=== PATIENT | female | born 1955 | race Caucasian/White ===

== ENCOUNTER 2020-08-16 16:01 | Emergency (ER) | payer OTHER ==
--- OUTSIDE RECORDS SUMMARY | 2020-08-16 16:03 | XMS REPORT | Summary of Care ---
:1955 Author Organization [facility] Address [address] [place] [id number] Care Team Providers Name Role Phone Benito Romeo Primary Care Provider Reason for Visit Reason Comments Well Woman Exam Encounter Details Date Type Department Care Team Description 06/07/[address] [facility] Women's Reny Dubose, Well woman exam with routine gynecological exam (Primary Dx); [facility]; [address] [place] [address] [facility] of loop electrosurgical excision procedure (LEEP) of cervix; Drive, [address] Drive History of HPV infection [facility] [address] [id number] [place], [place] [phone] Allergies Active Allergy Reactions Severity Noted Date Comments Codeine Nausea and/or Vomiting Medium 11/15/2017 documented as of this encounter (statuses as of 06/07/2020) Medications Medication Sig Dispensed Refills Start Date End Date Status atorvastatin 10 mg 20 mg. 0 11/09/2017 Active tablet buPROPion XL 150 mg 24 0 11/09/2017 Active hr tablet citalopram 20 mg tablet 0 11/09/2017 Active SYNTHROID 150 mcg tablet 0 11/09/2017 Active triamcinolone acetonide 0 11/09/2017 Active 0.1 % cream metroNIDAZOLE 0.75 % gel 0 08/30/2017 Active FEXOFENADINE HCL Take by mouth. 0 Active (MALU ALLERGY ORAL) multivitamin tablet Take 1 tablet by 0 Active mouth daily. VITAMIN E, BULK, MISC 0 Active Xoend-1-WBQ-EPA-Fish Oil Take by mouth. 0 Active 1,200 (144-216) mg Cap Cyanocobalamin 1,000 mcg Take by mouth. 0 Active tablet CALCIUM Take by mouth. 0 Acti ve CARBONATE/VITAMIN D2 (CALCIUM + VITAMIN D ORAL) pantoprazole 40 mg EC 0 10/10/2019 Active tablet documented as of this encounter (statuses as of 06/07/2020) Active Problems Problem Noted Date ANDRIY on CPAP 12/02/2019 History of loop electrosurgical excision procedure (LE EP) of cervix 11/15/2017 Constipation, unspecified constipation type 11/15/2017 documented as of this encounter (statuses as of 06/07/2020) Social History Tobacco Use Types Packs/Day Years Used Date Former Smoker Quit: 11/16/19 12 Smokeless Tobacco: Never Used Alcohol Use Drinks/Week oz/Week Comments Yes social Sex Assigned at Date Recorded Not on file COVID-19 Exposure Response Date Recorded In the last month, have you been in contact with No / Unsure 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 documented as of this encounter Last Filed Vital Signs Vital Sign Reading Time Taken Comments Blood Pressure 169/89 06/07/2020 3:12 PM INTER[employer] DES[employer] Pulse 80 06/07/2020 3:07 PM INTERNET DES[employer] Temperature 36.9 C (98.4 F) 06/07/2020 3:07 PM INTERNET DES[employer] Respiratory Rate 18 06/07/2020 3:07 PM INTERNET DES[employer] Oxygen Saturation - - Inhaled Oxygen Concentration - - Weight 90.8 kg (200 lb 3.2 oz) 06/07/2020 3:07 PM [employer] DES[employer] Height 157.5 cm (5' 2") 06/07/2020 3:07 PM INTERNET DESIGNER Body Mass Index 36.62 06/07/2020 3:07 PM INTERNET DESIGNER documented in this encounter Patient Instructions Patient InstructionsMar Reed RN - 06/07/2020 3:00 PM CST Patient Education Prevention Guidelines, Women Ages 65 and Older Screening tests and vaccines are an important part of managing your health. A screening test is doneto find possible disorders or diseases in people who don't have any symptoms. The goal is to find a disease early so lifestyle changes can be made and you can be watched more closely to reduce the riskof disease, or to detect it early enough to treat it most effectively. Screening tests are not considered diagnostic, but are used to determine if more testing is needed. Health counseling is essential, too. Below are guidelines for these, for women ages 65 and older. Talk with your healthcare provider to make sure youre up to date on what you need. Screening Who needs it How often Type 2 diabetes or prediabetes All women beginning at age 45 and women without symptoms at any age who are overweight or obese and have 1 or more additional risk factors for diabetes At least every 3 years Type 2 diabetes All women with prediabetes Every year Unhealthy alcohol use All women in this age group At routine exams Blood pressure All women in this age group Yearly checkup if your blood pressure is normal Normal blood pressure is less than 120/80 mm Hg If your blood pressure reading is higher than normal, follow the advice of your healthcare provider Breast cancer All women of average risk Mammograms should be done every 1 or 2 years. Talk with yourhealthcare provider about your risk factors and how often you need the test and for how long. Cervical cancer Only women who had abnormal screening results before age 65 Talk with your healthcare provider Chlamydia Women at increased risk for infection At routine exams Colorectal cancer All women at average risk in this age group through age 75 who are in good health.For women ages 76 to 85, talk with your healthcare provider about whether to continue screening. Forwomen 85 and older, screening is not needed. Multiple tests are available and are used at different times. Possible tests include: Flexible sigmoidoscopy every 5 years, or Colonoscopy every 10 [address], [address] colonography (virtual colonoscopy) every 5 years, or Yearly fecal occult blood test, or Yearly fecal immunochemical test every year, or Stool DNA test, every 3 years If you choose a test other than a colonoscopy and have an abnormal test result, you will need to follow-up with a colonoscopy. Talk with your healthcare provider which test is best for you. Some people should be screened using a different schedule because of their personal or family healthhistory. Talk with your healthcare provider about your health history. Depression All women in this age group At routine exams Gonorrhea Sexually active women at increased risk for infection At yearly routine exams Hepatitis C Anyone at increased risk; 1 time for those born between 1945 and 1965 At routine exams High cholesterol or triglycerides All women in this age group who are at risk for coronary artery disease At least every 5 years; talk with your healthcare provider about your risk HIV Women at increased risk for infection At routine exams; talk with your healthcare provider aboutyour risk Lung cancer Adults ages 55 to 74 who are in fairly good health and are at higher risk for lung cancer Currently smoke or have quit within the past 15 years 30-pack year smoking history Eligibility criteria and age limit (possibly up to age 80) may vary across major organizations Yearly lung cancer screening with a low dose CT scan (LDCT); talk with your healthcare provider Obesity All women in this age group At yearly routine exams Osteoporosis All women in this age group Routinely done every 2 years, but repeat as advised by yourhealthcare provider Syphilis Women at increased risk for infection At routine exams; talk with your healthcare provider Thyroid-stimulating hormone (TSH) Only women in this age group with symptoms of thyroid dysfunction Talk with your healthcare provider Tuberculosis Women at increased risk for infection Talk with your healthcare provider Vision All women in this age group Every 1 to 2 years; if you have a chronic health condition, ask your healthcare provider if you need exams more often Vaccine Who needs it How often Chickenpox (varicella) All women in this age group who have no record of this infection or vaccine 2doses; second dose should be given at least 4 weeks after the first dose Hepatitis A Women at increased risk for infection 2 or 3 doses (depending on the vaccine) given at least 6 months apart; talk with your healthcare provider Hepatitis B Women at increased risk for infection 2 or 3 doses (depending on the vaccine); second dose should be given 1 month after the first dose; if a the third dose, it should be given at least 2 months after the second dose and at least 4 months after the first dose Haemophilus influenzatype B (HIB) Women at increased risk for infection 1 to 3 doses; talk with your healthcare provider Influenza (flu) All women in this age group Once a year Pneumococcalconjugate vaccine (PCV13)and pneumococcal polysaccharidevaccine (PPSV23) All womenin this age group PPSV 23: women who have not been vaccinated or have not had infection PCV 13: women at increased risk for infection PPSV: 1 dose at age 65 or older PCV 13: 1 dose at age 65 or older; talk with your healthcare provider Tetanus/diphtheria/pertussis (Td/Tdap) booster All women in this age group Td every 10 years, or a 1-time dose of Tdap instead of a Td booster after age 18, then Td every 10 years Zoster (shingles) All women in this age group 2 vaccines are available: Recombinant zoster vaccine (RZV; Shigrix) is recommended as the preferred shingles vaccine. It's given in a series of 2 doses. The 2nd dose is given 2 to 6 months after the first. This is given evenif you've had shingles before or had a previous zoster live vaccine. Zoster live vaccine live (ZVL; Zostavax) may be given to healthy adults over age 60. It's given in one dose. Counseling Who needs it How often Diet and exercise Women who are overweight or obese When diagnosed, and then at routine exams Fall prevention (exercise and vitamin D supplements) All women in this age group At yearly routine exams Sexually transmitted infection prevention Women at increased risk for infectiontalk with your healthcare provider At routine exams Use of daily aspirin Women up to age 70 who are at high risk for cardiovascular problems and not at increased risk for bleeding as identified by your healthcare provider When your risk is known Use of tobacco and the health effects it can cause All women in this age group Every exam The [employer] last reviewed this educational content on 01/28/202019992355-7479 [employer]. All rights reserved. This information is not intended as a substitute for professional medical care. Always follow your healthcare professional's instructions. Patient Education Prevention Guidelines, Women Ages 65 and Older Screening tests and vaccines are an important part of managing your health. A screening test is doneto find possible disorders or diseases in people who don't have any symptoms. The goal is to find a disease early so lifestyle changes can be made and you can be watched more closely to reduce the riskof disease, or to detect it early enough to treat it most effectively. Screening tests are not considered diagnostic, but are used to determine if more testing is needed. Health counseling is essential, too. Below are guidelines for these, for women ages 65 and older. Talk with your healthcare provider to make sure youre up to date on what you need. Screening Who needs it How often Type 2 diabetes or prediabetes All women beginning at age 45 and women without symptoms at any age who are overweight or obese and have 1 or more additional risk factors for diabetes At least every 3 years Type 2 diabetes All women with prediabetes Every year Unhealthy alcohol use All women in this age group At routine exams Blood pressure All women in this age group Yearly checkup if your blood pressure is normal Normal blood pressure is less than 120/80 mm Hg If your blood pressure reading is higher than normal, follow the advice of your healthcare provider Breast cancer All women of average risk Mammograms should be done every 1 or 2 years. Talk with yourhealthcare provider about your risk factors and how often you need the test and for how long. Cervical cancer Only women who had abnormal screening results before age 65 Talk with your healthcare provider Chlamydia Women at increased risk for infection At routine exams Colorectal cancer All women at average risk in this age group through age 75 who are in good health.For women ages 76 to 85, talk with your healthcare provider about whether to continue screening. Forwomen 85 and older, screening is not needed. Multiple tests are available and are used at different times. Possible tests include: Flexible sigmoidoscopy every 5 years, or Colonoscopy every 10 years, or [address] colonography (virtual colonoscopy) every 5 years, or Yearly fecal occult blood test, or Yearly fecal immunochemical test every year, or Stool DNA test, every 3 years If you choose a test other than a colonoscopy and have an abnormal test result, you will need to follow-up with a colonoscopy. Talk with your healthcare provider which test is best for you. Some people should be screened using a different schedule because of their personal or family healthhistory. Talk with your healthcare provider about your health history. Depression All women in this age group At routine exams Gonorrhea Sexually active women at increased risk for infection At yearly routine exams Hepatitis C Anyone at increased risk; 1 time for those born between 1945 and 1964 At routine exams High cholesterol or triglycerides All women in this age group who are at risk for coronary artery disease At least every 5 years; talk with your healthcare provider about your risk HIV Women at increased risk for infection At routine exams; talk with your healthcare provider aboutyour risk Lung cancer Adults ages 55 to 74 who are in fairly good health and are at higher risk for lung cancer Currently smoke or have quit within the past 15 years 30-pack year smoking history Eligibility criteria and age limit (possibly up to age 80) may vary across major organizations Yearly lung cancer screening with a low dose CT scan (LDCT); talk with your healthcare provider Obesity All women in this age group At yearly routine exams Osteoporosis All women in this age group Routinely done every 2 years, but repeat as advised by yourhealthcare provider Syphilis Women at increased risk for infection At routine exams; talk with your healthcare provider Thyroid-stimulating hormone (TSH) Only women in this age group with symptoms of thyroid dysfunction Talk with your healthcare provider Tuberculosis Women at increased risk for infection Talk with your healthcare provider Vision All women in this age group Every 1 to 2 years; if you have a chronic health condition, ask your healthcare provider if you need exams more often Vaccine Who needs it How often Chickenpox (varicella) All women in this age group who have no record of this infection or vaccine 2doses; second dose should be given at least 4 weeks after the first dose Hepatitis A Women at increased risk for infection 2 or 3 doses (depending on the vaccine) given at least 6 months apart; talk with your healthcare provider Hepatitis B Women at increased risk for infection 2 or 3 doses (depending on the vaccine); second dose should be given 1 month after the first dose; if a the third dose, it should be given at least 2 months after the second dose and at least 4 months after the first dose Haemophilus influenzatype B (HIB) Women at increased risk for infection 1 to 3 doses; talk with your healthcare provider Influenza (flu) All women in this age group Once a year Pneumococcalconjugate vaccine (PCV13)and pneumococcal polysaccharidevaccine (PPSV23) All womenin this age group PPSV 23: women who have not been vaccinated or have not had infection PCV 13: women at increased risk for infection PPSV: 1 dose at age 65 or older PCV 13: 1 dose at age 65 or older; talk with your healthcare provider Tetanus/diphtheria/pertussis (Td/Tdap) booster All women in this age group Td every 10 years, or a 1-time dose of Tdap instead of a Td booster after age 18, then Td every 10 years Zoster (shingles) All women in this age group 2 vaccines are available: Recombinant zoster vaccine (RZV; Shigrix) is recommended as the preferred shingles vaccine. It's given in a series of 2 doses. The 2nd dose is given 2 to 6 months after the first. This is given evenif you've had shingles before or had a previous zoster live vaccine. Zoster live vaccine live (ZVL; Zostavax) may be given to healthy adults over age 60. It's given in one dose. Counseling Who needs it How often Diet and exercise Women who are overweight or obese When diagnosed, and then at routine exams Fall prevention (exercise and vitamin D supplements) All women in this age group At yearly routine exams Sexually transmitted infection prevention Women at increased risk for infectiontalk with your healthcare provider At routine exams Use of daily aspirin Women up to age 70 who are at high risk for cardiovascular problems and not at increased risk for bleeding as identified by your healthcare provider When your risk is known Use of tobacco and the health effects it can cause All women in this age group Every exam [employer] last reviewed this educational content on 01/28/202019997305-9622 [employer]. All rights reserved. This information is not intended as a substitute for professional medical care. Always follow your healthcare professional's instructions. 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 She is particularly concerned about WWE. The patient has a Body mass index is 36.62 kg/m.. She is working on eating healthier and exercising more. The patient is postmenopausal. Her last menstrual period was in her 50s. The patient is not sexually active. She currently has 0 sexual partner(s). She is offered sexuallytransmitted disease testing and declines. She denies any hot flushes or night sweats. She is not using hormone therapy. She denies using any complementary or alternative medicines. The patient reports some urinary incontinence. She denies any fecal incontinence. She denies any pelvic prolapse symptoms. Had LEEP about 6-[address] Domenico Carlson in [place]. States that she did not have any abnormal pap smears prior to the LEEP. Pap done in 2006- wnl Pap done in 2007- wnl Pap done in 2008- NILM Pap done in 2009- NILM Pap done in 2010- NILM. Pap in 2011 NILM, + HR HPV, genotype 16. DX of cervical LEEP biopsy done on 01/10/2012 showed DAISY I ECC biopsy results showed fragments of squamous mucosa with focal borderline koilocytosis non diagnostic for HPV effect. No high grade dysplasia identified 05/2013. Pap in 2012 showed NILM, HR HPV neg. Pap in 2013 showed NILM, with HR HPV+, genotype 16. Pap in 2014 was NILM, HR HPV -neg. Pap in [address] Nichols showed NILM. HR HPV-neg. Next pap smear is 2020. She engages in breast self awareness. She denies any breast changes. Her last mammogram was in 2019 and was normal. Will request records from [facility]. Her last DEXA scan was in 2019 and was normal. Her last colonoscopy was in 2016 and was abnormal with polyps. Patient states will get repeat colonoscopy in [address] Betancourt. She denies any n/v, d/c, rectal bleeding. She denies any family history of breast, ovarian, uterine or colon cancer. Patient's mother had cervical cancer. She had a flu shot this year. The patient feels safe at home. She denies any history of drug use. She does not smoke. She drinks socially. Her mood is good. Histories OB History Para Term AB Living 0 0 0 0 0 0 SAB TAB Ectopic Multiple Live Births 0 0 0 0 0 Past Medical History: Diagnosis Date Anxiety Depression Hormone disorder thyroid ANDRIY on CPAP 12/02/2019 Pap smear abnormality of cervix abnormal cells- leep done 6-8 yrs ago Thyroid disease Urinary incontinence min stress incont. Family History Problem Relation Age of Onset Cancer Mother cervical Heart Mother High cholesterol Brother Hypertension Brother Diabetes Maternal Grandmother Heart Sister genetic heart issue Aneurysm Sister 58 brain Arthritis NoFHx Asthma NoFHx defects NoFHx Breast Cancer NoFHx Colon Cancer NoFHx Ovarian Cancer NoFHx Uterine Cancer NoFHx Depression NoFHx Genetic NoFHx Mental retardation NoFHx Neurological NoFHx Osteoporosis NoFHx Psychiatry NoFHx Family Status Relation Name Status Mo Alive Fa Bro Alive MGMo (Not Specified) Sis (Not Specified) NoFHx (Not Specified) Past Surgical History: Procedure Laterality Date BREAST SURGERY bx rajendra breast- benign COLONOSCOPY 2015 scheduled for Ericka-polyp hx COLPOSCOPY CONIZATION CERVIX,LOOP ELECTRD 6-8yrs ago Social History Socioeconomic History Marital status: Single Spouse name: Not on file Number of children: 0 Years of education: Not on file Highest education level: Not on file Occupational History Occupation: retired Social Needs Financial resource strain: Not on file Food insecurity Worry: Not on file Inability: Not on file Transportation needs Medical: Not on file Non-medical: Not on file Tobacco Use Smoking status: Former Smoker Quit date: 11/16/2011 Years since quittin.5 Smokeless tobacco: Never Used Substance and Sexual Activity Alcohol use: Yes Comment: social Drug use: No Sexual activity: Never control/protection: Post-menopausal Lifestyle Physical activity Days per week: Not on file Minutes per session: Not on file Stress: Not on file Relationships Social connections Talks on phone: Not on file Gets together: Not on file Attends nondenominational service: Not on file Active member of club or organization: Not on file Attends meetings of clubs or organizations: Not on file Relationship status: Not on file Intimate partner violence Fear of current or ex partner: Not on file Emotionally abused: Not on file Physically abused: Not on file Forced sexual activity: Not on file Other Topics Concern Not on file Social History Narrative Denies domestic or physical violence Social History Substance and Sexual Activity Sexual Activity Never control/protection: Post-menopausal Labs none Radiology none Allergies Sarina is allergic to codeine. Medications Sarina has a current medication list which includes the following prescription(s): pantoprazole, calcium carbonate/vitamin d2, cyanocobalamin, fexofenadine hcl, vitamin e, atorvastatin, bupropion xl, citalopram, metronidazole, multivitamin, xyfhz-[id number]-rnf-epa-fish oil, synthroid, and triamcinolone acetonide. Review of Systems Constitutional: Negative for appetite change, fatigue, fever, unexpected weight change, weight gain and weight loss. HENT: Negative for rhinorrhea and sore throat. Eyes: Negative for pain and itching. Respiratory: Negative for cough, chest tightness and shortness of breath. Breasts: Negative for discharge, mass and pain. Cardiovascular: Negative for chest pain, palpitations and leg swelling. Gastrointestinal: Negative for abdominal pain, constipation, diarrhea and nausea. Genitourinary: Negative for bladder incontinence, dysuria, vaginal discharge, difficulty urinating, vaginal pain and pelvic pain. Musculoskeletal: Negative for gait problem and myalgias. Skin: Negative for rash. Neurological: Negative for dizziness and headaches. Psychiatric/Behavioral: Negative for suicidal ideas. The patient is not nervous/anxious. Endocrine: Negative for hair loss, weight gain and weight loss. BP (!) 169/89 (BP Location: Right arm, Patient Position: Sitting, BP CUFF SIZE: Adult Medium) | Pulse 80 | Temp 36.9 C (98.4 F) (Oral) | Resp 18 | Ht 5' 2" (1.575 m) | Wt 200 lb 3.2 oz (90.8 kg) | BMI 36.62 kg/m Pregravid BMI: Could not be calculated Physical Exam Vitals reviewed. Constitutional: She is oriented to person, place, and time. She appears well- developed and well-nourished. Neck: No mass. No thyromegaly palpated. No neck adenopathy. Cardiovascular: Regular rate and rhythm. Pulmonary/Chest: Normal inspiratory effort. Abdominal: Abdomen is soft. No tenderness present. No hernia palpated or inspected. Neuro/Psychiatric: She has a normal mood and affect. She is oriented to person, place, and time. Skin: Skin normal. Lymphadenopathy: No neck adenopathy present. No axillary adenopathy present. No inguinal adenopathy present. Breast: Right breast exhibits no mass, no nipple discharge and no tenderness. Left breast exhibits no mass, no nipple discharge and no tenderness. Breasts are symmetrical. Normal left breast and normalright breast External genitalia: Vaginal atrophy+ Urethral meatus: Normal urethral meatus Urethra: Normal urethra. Bladder: No tenderness. Normal bladder Vagina:No lesion inspected. Abnormal estrogen effect. No abnormal vaginal discharge found. No lesions in the vagina. Cervix: Normal cervix. No lesion. No tenderness and no discharge present. Uterus: Uterus is non-tender. Normal uterus Adnexa: Right adnexa without tenderness. Left adnexa without tenderness. Normal left adnexa and normal right adnexa Anus/perineum: Normal perineum and normal anus. Assessment/Plan Well woman exam with routine gynecological exam (primary encounter diagnosis) FOLLOW-UP in 1 yr WWE Screening breast examination No complaints, self awareness. Will request records for dexa, mammo, and colonoscopy. Return to clinic in 1 yr WWE Discussed treatment options. Reviewed patient instructions and provided printed copy. This visit did not involve counseling and coordination that comprised more than 50% of the visit time. Reny Dubose PA-C 06/07/2020 3:54 PM RNET DESIGNER documented in this encounter Plan of Treatment Health Maintenance Due Date Last Done Comments HEPATITIS C (HCV) SCREEN 1955 DTaP,Tdap,and Td Vaccines (1 - Tdap) 1972 COLON CANCER SCREENING ANNUAL FIT/FOBT 2003 COLON CANCER SCREENING FIT DNA EVERY 3 YEARS 2003 COLON CANCER SCREENING SIGMOIDOSCOPY EVERY 5 YEARS 2003 COLONOSCOPY 2003 Colorectal Cancer Screening 2003 Zoster Recombinant Vaccine (SHINGRIX) (1 of 2) 2003 LUNG CANCER SCREEN: Recommended for age 55-80 with 30 2008 + pack year history Medicare Wellness Visit 2018 Osteoporosis Screening 2018 PNEUMOCOCCAL VACCINES 65+ (1 of 1 - PPSV23) 2018 INFLUENZA VACCINE (#1) 2020 Depression Screening 12/01/2020 12/02/2019 Breast Cancer Screening (MAMMOGRAM) 02/15/2021 02/16/2020 documented as of this encounter Results Not on filedocumented in this encounter Visit Diagnoses Diagnosis Well woman exam with routine gynecologic al exam - Primary Routine gynecological examination Screening breast examination Other screening breast examination History of loop electrosurgical excision procedure (LEEP) of cervix History of HPV infection Personal history of other infectious and parasitic disease documented in this encounter Insurance Payer Benefit Plan Subscriber ID Effective Phone Address Typ e / Group Dates MEDICARE MEDICARE [id number] 2018-Pres [phone] [facility] care PART A & B ent [id number] [place] [phone] [place]UTUAL [place]UT[place] [id number] 2018-Pres Medica nimo DOMINGUEZ ent Supplement documented as of this encounter
--- OUTSIDE RECORDS SUMMARY | 2020-08-16 16:03 | XMS REPORT | Continuity of Care Document ---
:1955 Author Organization [facility] t Address [address] [place] [address] Care Team Providers Name Role Phone Yasmany ALLEN, [place] Attending Clinician Doctor Unassigned, Name Attending Clinician Unavailable Only, Test Attending Clinician Unavailable Pob, Lab Main Attending Clinician Unavailable Simone ALLEN, Cam Attending Clinician Gracy FONTAINE Attending Clinician Yasmany ALLEN, A Admitting Clinician Problems This patient has no known problems. Allergies, Adverse Reactions, Alerts This patient has no known allergies or adverse reactions. Medications This patient has no known medications. Procedures This patient has no known procedures. Encounters Start End Encounter Admission Attending Care Care Encounter Source Date/Time Date/Time Type Type Clinicians Facility Department ID 2020-08-04 2020-08-04 [id number] 08:20:00 11:36:00 Encounter Dev Ospina [id number] [place] 4.2.7.2.686 Surgical [id number] [place] 071 2020-08-04 2020-08-04 Orders Doctor PIERCE [id number] 00:00:00 00:00:00 Only Unassigned, [place] [id number] [place] [facility] 4.2.7.2.686 [id number] [id number] 2020-08-03 2020-08-03 Laboratory Only, [facility] [id number] 09:10:42 09:25:42 Only Test Bhavesh [id number] [place] 4.2.7.2.686 [place] [id number] 2020-07-26 2020-07-26 Developer Relations Manager Minnie, [facility] [id number] 16:35:19 16:50:19 Visit Lab Main Bhavesh [id number] [place] 4.2.7.2.686 Professio [id number] [address] 2020-06-15 2020-06-15 Orders Doctor STAN [id number] 00:00:00 00:00:00 Only Unassigned, [place] [id number] [place] [facility] 4.2.7.2.686 [id number] [id number] 2020-06-10 2020-06-10 Telephone Monika Nichols [facility] [id number] 00:00:00 00:00:00 Cam Bhavesh [id number] [place] 4.2.7.2.686 Professio [id number] [address] 2020-06-07 2020-06-07 Office Gracy [facility] [id number] 14:58:09 15:28:09 Visit Reny Ospina 350.1.13.10 [place] 4.2.7.2.686 Professio [id number] [address] 2020-06-07 2020-06-07 Orders Doctor STAN [id number] 00:00:00 00:00:00 Only Unassigned, [place]SH[place] [id number] [place] [facility] 4.2.7.2.686 [id number] [id number] Results This patient has no known results.
--- OUTSIDE RECORDS SUMMARY | 2020-08-16 16:04 | XMS REPORT | Summary of Care ---
:1955 Author Organization [facility] Address [address] [place] [address] Care Team Providers Name Role Phone Benito Romeo Primary Care Provider Reason for Visit Reason Comments LAB WORK Auth/Cert Status Reason Specialty Diagnoses / Referred By Referred To Procedures Contact Contact Clinical Medical Adc Lab Laboratory [address] [place] [phone] Encounter Details Date Type Department Care Team Description 08/03/2020 Laboratory Only [facility] Dev Jade MD [address] [place] [phone] Preop testing (Primary Dx); Phlebotomy Only, [facility] Test COVID-19 Lab-[address] [address] Allergies Active Allergy Reactions Severity Noted Date Comments Codeine Nausea and/or Vomiting Medium 11/15/2017 Latex Hives Medium 08/02/2020 documented as of this encounter (statuses as of 08/03/2020) Medications Medication Sig Dispensed Refills Start Date [...] daily. VITAMIN E, BULK, MISC 0 Active Pjfqw-1-ZHC-EPA-Fish Oil Take by mouth. 0 Active 1,200 (144-216) mg Cap Cyanocobalamin 1,000 mcg Take by mouth. 0 Active tablet CALCIUM Take by mouth. 0 Acti ve CARBONATE/VITAMIN D2 (CALCIUM + VITAMIN D ORAL) pantoprazole 40 mg EC 0 10/10/2019 Active tablet documented as of this encounter (statuses as of 08/03/2020) Active Problems Problem Noted Date ANDRIY on CPAP 12/02/2019 History of loop electrosurgical excision procedure (LE EP) of cervix 11/15/2017 Constipation, unspecified constipation type 11/15/2017 documented as of this encounter (statuses as of 08/03/2020) Social History Tobacco Use Types Packs/Day Years Used Date Former Smoker Quit: 11/16/19 12 Smokeless Tobacco: Never Used Alcohol Use Drinks/Week oz/Week Comments Yes social Sex Assigned at Date Recorded Not on file COVID-19 Exposure Response Date Recorded In the last month, have you been in contact with No / Unsure 08/02/2020 3:36 PM [employer] someone who was confirmed or suspected to have Coronavirus / COVID-19? documented as of this encounter Last Filed Vital Signs Not on filedocumented in this encounter Nursing Notes Trish Strickland - 08/03/2020 9:30 AM CSTCovid swab collected. documented in this encounter Plan of Treatment Date Type Specialty Care Team Description 08/04/2020 Hospital Encounter Surgery Dev Jade MD [address] [place] [address] [phone] 08/04/2020 Anesthesia Event Surgery Benito Castano C [address] [phone] 08/04/2020 Surgery Surgery Dev Jade PHACOEMULSI FICATION OF MD [place] CATARACT WITH INTRAOCULAR [address] [place] [address] [phone] Name Type Priority Associated Diagnoses Date/Ti me COVID-19 (ID NOW RAPID LAB Routine Preop testing 11/2020 9:31 AM [employer] TESTING) Name Type Priority Associated Diagnoses Order S jamie COVID-19 (ID NOW RAPID LAB Routine Preop testing Expe cted: 08/03/2020, TESTING) Expires: 2021 Health Maintenance Due Date Last Done Comments [...] filedocumented in this encounter Visit Diagnoses Diagnosis Preop testing - Primary Preoperative examination, unspecified COVID-19 Combined forms of age-related cataract o f right eye Other and combined forms of senile catar act documented in this encounter Insurance Payer Benefit Plan Subscriber ID Effective Phone Address Typ e / Group Dates MEDICARE MEDICARE [id number] 2018-Pres [phone] Medi care PART A & B ent [id number] [place] [phone] [place] [id number] 2018-Pres Medica nimo DOMINGUEZ ent Supplement documented as of this encounter
--- OUTSIDE RECORDS SUMMARY | 2020-08-16 16:04 | XMS REPORT | Summary of Care ---
:1955 Author Organization [facility] Address [address] [place] [address] Care Team Providers Name Role Phone Benito Romeo Primary Care Provider Reason for Visit Reason Comments LAB WORK Auth/Cert Status Reason Specialty Diagnoses / Procedures Referred By Tarik ellington Referred To Contact Phlebotomy Diagnoses H25.811 Adc Pob Lab Draw Procedures CBC CMP Professional Office Building [address] [facility] , [address] [place] [address] Phone: Fax: Encounter Details Date Type Department Care Team Description 07/26/2020 Armor Reconnaissance Vehicle Driver Visit [facility] Pan Jade MD [address] [place] [address] [facility] [place] [address] Preop testing Professional Office Pob, Adc Lab Main (Primary Dx) Building Phlebotomy Lab Professional Office Building [address] [place] [address] , [address] [place] [address] Allergies Active Allergy Reactions Severity Noted Date Comments Codeine Nausea and/or Vomiting Medium 11/15/2017 documented as of this encounter (statuses as of 07/26/2020) Medications Medication Sig Dispensed Refills Start Date [...] daily. VITAMIN E, BULK, MISC 0 Active Czlpd-4-PWO-EPA-Fish Oil Take by mouth. 0 Active 1,200 (144-216) mg Cap Cyanocobalamin 1,000 mcg Take by mouth. 0 Active tablet CALCIUM Take by mouth. 0 Acti ve CARBONATE/VITAMIN D2 (CALCIUM + VITAMIN D ORAL) pantoprazole 40 mg EC 0 10/10/2019 Active tablet documented as of this encounter (statuses as of 07/26/2020) Active Problems Problem Noted Date ANDRIY on CPAP 12/02/2019 History of loop electrosurgical excision procedure (LE EP) of cervix 11/15/2017 Constipation, unspecified constipation type 11/15/2017 documented as of this encounter (statuses as of 07/26/2020) Social History Tobacco Use Types Packs/Day Years Used Date Former Smoker Quit: 11/16/19 12 Smokeless Tobacco: Never Used Alcohol Use Drinks/Week oz/Week Comments Yes social Sex Assigned at Date Recorded Not on file COVID-19 Exposure Response Date Recorded In the last month, have you been in contact with No / Unsure 07/26/2020 4:34 PM INTERMISSION COORDINATOR someone who was confirmed or suspected to have Coronavirus / COVID-19? documented as of this encounter Last Filed Vital Signs Not on filedocumented in this encounter Nursing Notes Trish Strickland - 07/26/2020 5:15 PM CST Venipuncture collection performed by clean technique on the right anticubitus. Total of 1 attempts were made. Slight pressure and a bandage/dressing were applied to the site(s). The patient experiencedno complications. The following specimens were processed according to instructions and sent to [facility] laboratories per lab order on [id number]: LT BLUE 1 SST RED 1 LAV PPT DK GREEN (LiHep) DK GREEN (SodH) RAMIREZ DK BLUE (K2) DK BLUE (S) ACD Blood Culture NIPT/NTD documented in this encounter Plan of Treatment Date Type Specialty Care Team Description 08/03/2020 Laboratory Only Clinical Medical YasmanyPan MD [address] [place] [address] [place] [address] Laboratory Only, Adc Test 08/04/2020 Hospital Surgery Dev Jade MD [address] [place] [address] [phone] 08/04/2020 Anesthesia Event Surgery Benito Castano, [address] [phone] 08/04/2020 Surgery Surgery Dev Jade PHACOEMULSI JOSHUAATION CRISTOPHER Perry MD CATARACT WITH INTRAOCULAR [address] [facility] [phone] Name Type Priority Associated Diagnoses Date/Ti me CBC WITH DIFF LAB Routine Preop testing 07/26/2020 4 :55 PM INTERMISSION COORDINATOR COMP. METABOLIC PANEL LAB Routine Preop testing 07/26 4:55 PM INTERMISSION COORDINATOR ([id number]) Name Type Priority Associated Diagnoses Order S chedule CBC WITH DIFF LAB Routine Preop testing Expected: , Expires: 2020 COMP. METABOLIC PANEL LAB Routine Preop testing Expec iris: 07/26/2020, ([id number]) Expires: 2020 Health Maintenance Due Date Last Done Comments [...] Preop testing - Primary Preoperative examination, unspecified Combined forms of age-related cataract o f right eye Other and combined forms of senile catar act documented in this encounter Insurance Payer Benefit Plan Subscriber ID Effective Phone Address Typ e / Group Dates MEDICARE MEDICARE [id number] 2018-Pres [phone] [address] [facility] PART A & B ent [id number] [place] [phone] [place] [id number] 2018-Pres Medica re ANGELICA DOMINGUEZ ent Supplement documented as of this encounter
--- OUTSIDE RECORDS SUMMARY | 2020-08-16 16:04 | XMS REPORT | Summary of Care ---
:1955 Author Organization [facility] Address [address] [place] [address] Care Team Providers Name Role Phone Benito Romeo Primary Care Provider Reason for Visit Reason Comments Well Woman Exam Encounter Details Date Type Department Care Team Description 06/07/2020 Office Visit [facility] Women's Reny Dubose, Well woman exam with routine gynecological exam (Primary Dx); [facility]; [address] [place] [address] [facility] History of loop electrosurgical excision procedure (LEEP) of cervix; Drive, [address] Drive History of HPV infection [facility] [address] [address] [place], [place] [phone] [address] Allergies Active Allergy Reactions Severity Noted [...] daily. VITAMIN E, BULK, MISC 0 Active Kdhas-1-PFH-EPA-Fish Oil Take by mouth. 0 Active 1,200 [...] with No / Unsure 06/07/2020 2:54 PM GEOMORPHOLOGY TEACHER someone who was confirmed or suspected to have Coronavirus / COVID-19? documented as of this encounter Last Filed Vital Signs Vital Sign Reading Time Taken Comments Blood Pressure 169/89 06/07/2020 3:12 PM GEOMORPHOLOGY TEACHER Pulse 80 06/07/2020 3:07 PM GEOMORPHOLOGY TEACHER Temperature 36.9 C (98.4 F) 06/07/2020 3:07 PM GEOMORPHOLOGY TEACHER Respiratory Rate 18 06/07/2020 3:07 PM GEOMORPHOLOGY TEACHER Oxygen Saturation - - Inhaled Oxygen Concentration - - Weight 90.8 kg (200 lb 3.2 oz) 06/07/2020 3:07 PM GEOMORPHOLOGY TEACHER Height 157.5 cm (5' 2") 06/07/2020 3:07 PM GEOMORPHOLOGY TEACHER Body Mass Index 36.62 06/07/2020 3:07 PM GEOMORPHOLOGY TEACHER documented in this encounter Patient Instructions Patient [...] women in this age group Every exam [employer] last reviewed this educational content on 01/28/202019992212-7010 The [employer]. All rights reserved. This information is not [...] women in this age group Every exam [employer] last reviewed this educational content on 01/28/202019994696-1728 The [employer]. All rights reserved. This information is not intended as a substitute for professional medical care. Always follow your healthcare professional's instructions. ORPHOLOGY TEACHER documented in this encounter Progress Notes Reny [...] years ago with Dr. Domenico Carlson in [place]. States that she did not have any [...] and was normal. Will request records from [facility]. Her last DEXA scan was in 2019 [...] file Gets together: Not on file Attends sikh service: Not on file Active member of [...] e, atorvastatin, bupropion xl, citalopram, metronidazole, multivitamin, lctxy-5-txh-epa-fish oil, synthroid, and triamcinolone acetonide. Review of [...] time. Reny Dubose PA-C 06/07/2020 3:54 PM ORPHOLOGY TEACHER documented in this encounter Plan of Treatment [...] Typ e / Group Dates MEDICARE MEDICARE [id number] 2018-Pres [phone] [address] [facility] care PART A & B ent [id number] [place] [phone] [place]UT[place] [id number] 2018-Pres Medica nimo DOMINGUEZ ent Supplement documented as of this encounter
--- OUTSIDE RECORDS SUMMARY | 2020-08-16 16:04 | XMS REPORT | Summary of Care ---
:1955 Author Organization [facility] - Health Address [address] [place] [address] Care Team Providers Name Role Phone Agueda Benito Lopez Primary Care Provider Encounter Details Date Type Department Care Team Description 06/15/2020 Orders Only [facility] Doctor Unassigned, No [address] [facility] [place] [address] [address] [place] [address] Allergies Active Allergy Reactions Severity Noted Date Comments Codeine Nausea and/or Vomiting Medium 11/15/2017 documented as of this encounter (statuses as of 06/15/2020) Medications Medication Sig Dispensed Refills Start Date [...] daily. VITAMIN E, BULK, MISC 0 Active Dbskt-6-IRZ-EPA-Fish Oil Take by mouth. 0 Active 1,200 (144-216) mg Cap Cyanocobalamin 1,000 mcg Take by mouth. 0 Active tablet CALCIUM Take by mouth. 0 Acti ve CARBONATE/VITAMIN D2 (CALCIUM + VITAMIN D ORAL) pantoprazole 40 mg EC 0 10/10/2019 Active tablet documented as of this encounter (statuses as of 06/15/2020) Active Problems Problem Noted Date ANDRIY on CPAP 12/02/2019 History of loop electrosurgical excision procedure (LE EP) of cervix 11/15/2017 Constipation, unspecified constipation type 11/15/2017 documented as of this encounter (statuses as of 06/15/2020) Social History Tobacco Use Types Packs/Day Years Used Date Former Smoker Quit: 11/16/19 12 Smokeless Tobacco: Never Used Alcohol Use Drinks/Week oz/Week Comments Yes social Sex Assigned at Date Recorded Not on file COVID-19 Exposure Response Date Recorded In the last month, have you been in contact with No / Unsure 06/07/2020 2:54 PM STEEL RIGGER someone who was confirmed or suspected to have Coronavirus / COVID-19? documented as of this encounter Last Filed Vital Signs Not on filedocumented in this encounter Plan of Treatment Health [...] 02/15/2021 02/16/2020 documented as of this encounter Procedures Procedure Name Priority Date/Time Associated Diagnosis Comme nts EXTERNAL PROVIDER Routine 06/15/2020 12:01 AM STEEL RIGGER RECORDS documented in this encounter Results Not on filedocumented in this encounter Insurance Payer Benefit Plan Subscriber ID Effective Phone Address Typ e / Group Dates MEDICARE MEDICARE [id number] 2018-Pres [phone] [facility] care PART A & B ent [id number] [place] [phone] [place] [id number] 2018-Pres Medica nimo DOMINGUEZ ent Supplement documented as of this encounter
--- OUTSIDE RECORDS SUMMARY | 2020-08-16 16:04 | XMS REPORT | Summary of Care ---
:1955 Author Organization [facility] - Health Address [address] [place] [address] Care Team Providers Name Role Phone Agueda Benito Lopez Primary Care Provider Encounter Details Date Type Department Care Team Description 06/07/2020 Orders Only [facility] Doctor Unassigned, No [address] [place] [address] [address] [place] [address] Allergies Active Allergy Reactions Severity Noted Date Comments Codeine Nausea and/or Vomiting Medium 11/15/2017 documented as of this encounter (statuses as of 06/11/2020) Medications Medication Sig Dispensed Refills Start Date [...] daily. VITAMIN E, BULK, MISC 0 Active Wmtrz-8-SGK-EPA-Fish Oil Take by mouth. 0 Active 1,200 (144-216) mg Cap Cyanocobalamin 1,000 mcg Take by mouth. 0 Active tablet CALCIUM Take by mouth. 0 Acti ve CARBONATE/VITAMIN D2 (CALCIUM + VITAMIN D ORAL) pantoprazole 40 mg EC 0 10/10/2019 Active tablet documented as of this encounter (statuses as of 06/11/2020) Active Problems Problem Noted Date ANDRIY on CPAP 12/02/2019 History of loop electrosurgical excision procedure (LE EP) of cervix 11/15/2017 Constipation, unspecified constipation type 11/15/2017 documented as of this encounter (statuses as of 06/11/2020) Social History Tobacco Use Types Packs/Day Years Used Date Former Smoker Quit: 11/16/19 12 Smokeless Tobacco: Never Used Alcohol Use Drinks/Week oz/Week Comments Yes social Sex Assigned at Date Recorded Not on file COVID-19 Exposure Response Date Recorded In the last month, have you been in contact with No / Unsure 06/07/2020 2:54 PM CAMPUS CH[employer]IN someone who was confirmed or suspected to [...] Name Priority Date/Time Associated Diagnosis Comme nts AUTHORIZATION TO RELEASE Routine 06/07/2020 12:01 AM PHI TO [facility] [place] documented in this encounter Results Not on filedocumented in this encounter Insurance Payer Benefit Plan Subscriber ID Effective Phone Address Typ e / Group Dates MEDICARE MEDICARE [id number] 2018-Pres [phone] Medi care PART A & B ent [id number] [place] [phone] [place] [id number] 2018-Pres Medica nimo DOMINGUEZ ent Supplement documented as of this encounter
--- OUTSIDE RECORDS SUMMARY | 2020-08-16 16:04 | XMS REPORT | Summary of Care ---
:1955 Author Organization [facility] Address [address] [place] [address] Care Team Providers Name Role Phone Nicholekimberly Benito Jessica Primary Care Provider Reason for Visit Reason Comments Medical Records Encounter Details Date Type Department Care Team Description 06/10/2020 Telephone [facility] Women's Monika Nichols MD Medical Records Healthcare- [address] [address] [address] [place] [address] [place] [address] [phone] Allergies Active Allergy Reactions Severity Noted Date Comments Codeine Nausea and/or Vomiting Medium 11/15/2017 documented as of this encounter (statuses as of 06/10/2020) Medications Medication Sig Dispensed Refills Start Date [...] daily. VITAMIN E, BULK, MISC 0 Active Xxfie-9-GNI-EPA-Fish Oil Take by mouth. 0 Active 1,200 (144-216) mg Cap Cyanocobalamin 1,000 mcg Take by mouth. 0 Active tablet CALCIUM Take by mouth. 0 Acti ve CARBONATE/VITAMIN D2 (CALCIUM + VITAMIN D ORAL) pantoprazole 40 mg EC 0 10/10/2019 Active tablet documented as of this encounter (statuses as of 06/10/2020) Active Problems Problem Noted Date ANDRIY on CPAP 12/02/2019 History of loop electrosurgical excision procedure (LE EP) of cervix 11/15/2017 Constipation, unspecified constipation type 11/15/2017 documented as of this encounter (statuses as of 06/10/2020) Social History Tobacco Use Types Packs/Day Years Used Date Former Smoker Quit: 11/16/19 12 Smokeless Tobacco: Never Used Alcohol Use Drinks/Week oz/Week Comments Yes social Sex Assigned at Date Recorded Not on file COVID-19 Exposure Response Date Recorded In the last month, have you been in contact with No / Unsure 06/07/2020 2:54 PM MEDICAID BILLING SPECIALIST someone who was confirmed or suspected to have Coronavirus / COVID-19? documented as of this encounter Last Filed Vital Signs Not on filedocumented in this encounter Miscellaneous Notes Telephone Encounter - Reny Dubose PA-C - 06/10/2020 12:01 PM CSTUS of R Breast on 06/01/2020 Stable breast finding as detailed. Diagnostic mammo and right breast USG in 9 months is recommended.This would complete a 1 year follow up. US of R breast on 02/23/2020 9 mm oblong lesion is present in 12 o clock position favored to represent intramammary lymph node a demonstrating mild angulated margins. A 7 mm oblong circumscribed lesion in the 9 o clock periareolaregion. This may be additional lymph node but is non specific in appearance. 6 month follow-up usg of R breast recommended. Mammogram done on 02/13/2020 1 cm asymmetric density within the retroareolar region of the right breast. Ultrasound recommended.Benign appearing L breast. DEXA scan done on 02/13/2020 normal CAID BILLING SPECIALIST Telephone Encounter - Nanette Phillips - 06/10/2020 11:35 AM CSTReceived fax, medical records from [facility] Placed on Reny's desk. documented in this encounter Plan of Treatment [...] Typ e / Group Dates MEDICARE MEDICARE [id number] 2018-Pres [phone] [facility] care PART A & B ent [id number] WANDA MELENDEZ [phone] [place] [id number] 2018-Pres Tierra DOMINGUEZ ent Supplement documented as of this encounter
--- OUTSIDE RECORDS SUMMARY | 2020-08-16 16:05 | XMS REPORT | Summary of Care ---
:1955 Author Organization [facility] Address [address] [place] [address] Care Team Providers Name Role Phone Benito Romeo Primary Care Provider Reason for Visit Auth/Cert Status Reason Specialty Diagnoses / Procedures Referred By Tarik richmondact Referred To Contact Surgery Diagnoses Combined forms of age-related cataract, right eye Combined forms of age-related cataract of right eye [H25.811] Adc Pre/Pacu/Post Procedures MT XCAPSL CTRC RMVL INSJ IO LENS PROSTH W/O ECP PHACOEMULSIFICATION OF CATARACT WITH INTRAOCULAR LENS IMPLANT [id number] - MT XCAPSL CTRC RMVL INSJ IO LENS PROSTH W/O ECP [address] [place], [place] [address] Phone: Fax: Encounter Details Date Type Department Care Team Description 08/04/2020 Hospital Encounter [facility] MD Tr[facility] [address] [facility] [place] [address] [place], [place] [phone] Allergies Active Allergy Reactions Severity Noted Date Comments Codeine Nausea and/or Vomiting Medium 11/15/2017 Latex Hives Medium 08/02/2020 documented as of this encounter (statuses as of 08/04/2020) Medications Medication Sig Dispensed Refills Start Date [...] daily. VITAMIN E, BULK, MISC 0 Active Vhkyl-3-UMA-EPA-Fish Oil Take by mouth. 0 Active 1,200 (144-216) mg Cap Cyanocobalamin 1,000 mcg Take by mouth. 0 Active tablet CALCIUM Take by mouth. 0 Acti ve CARBONATE/VITAMIN D2 (CALCIUM + VITAMIN D ORAL) pantoprazole 40 mg EC 0 10/10/2019 Active tablet documented as of this encounter (statuses as of 08/04/2020) Active Problems Problem Noted Date ANDRIY on CPAP 12/02/2019 History of loop electrosurgical excision procedure (LE EP) of cervix 11/15/2017 Constipation, unspecified constipation type 11/15/2017 documented as of this encounter (statuses as of 08/04/2020) Social History Tobacco Use Types Packs/Day Years Used Date Former Smoker Quit: 11/16/19 12 Smokeless Tobacco: Never Used Tobacco Cessation: Counseling Given: No Alcohol Use Drinks/Week oz/Week Comments Yes social Sex Assigned at Date Recorded Not on file COVID-19 Exposure Response Date Recorded In the last month, have you been in contact with No / Unsure 08/02/2020 3:36 PM MANAGER OUTREACH someone who was confirmed or suspected to have Coronavirus / COVID-19? documented as of this encounter Last Filed Vital Signs Vital Sign Reading Time Taken Comments Blood Pressure 180/81 08/04/2020 11:27 AM MANAGER OUTREACH Pulse 67 08/04/2020 11:20 AM MANAGER OUTREACH Temperature 36.2 C (97.1 F) 08/04/2020 11:27 AM MANAGER OUTREACH Respiratory Rate 19 08/04/2020 11:27 AM MANAGER OUTREACH Oxygen Saturation 99% 08/04/2020 11:27 AM MANAGER OUTREACH Inhaled Oxygen Concentration - - Weight 85.3 kg (188 lb) 08/02/2020 3:30 PM MANAGER OUTREACH Height 157.5 cm (5' 2") 08/02/2020 3:30 PM MANAGER OUTREACH Body Mass Index 34.39 08/02/2020 3:30 PM MANAGER OUTREACH documented in this encounter Discharge Instructions InstructionsScalise-Leola Cummings RN - 1CATARACT DISCHARGE INSTRUCTIONS 1. DO NOT Remove the eye patch. Leave on until you post-operative visit tomorrow. Keep it dry. 2. Activities as tolerated 3. Please no heavy lifting, and do not drive or operate machinery until you are seen by a doctor on your first post op day. 4. Your depth perception may be off, so walk a little slower. Be careful on steps or stairs and uneven ground and go slower around corners. 5. Most likely your eye will stay numb until tomorrow and you should not experience any extreme pain. However, if you should have bad pain or nausea, please call the doctor's office or hospital chair post machine operator to get in touch with doctor. 6. For mild discomfort or a headache, you may take Tylenol, Aspirin, or Ibuprofen (in not allergic). 7. You may resume your pre-operative diet. 8. If you have any further questions or concerns, please call the office or hospital chair post machine operator to getin touch with the doctor. documented in this encounter H&P Notes Dev Jade MD - 08/04/2020 10:27 AM CSTH&P Update H&P was reviewed and the patient was examined and there was no change in the patient's condition. documented in this encounter Plan of Treatment [...] - PPSV23) 2018 INFLUENZA VACCINE (#1) 2020 Breast Cancer Screening (MAMMOGRAM) 02/15/2021 02/16/2020 Depression Screening 08/04/2021 08/04/2020 documented as of this encounter Implants Implanted Type Area Clinical Psychologist Device Shelf Model / Identifier Expiration Date Ser ial / Lot Lens, Bradford #[id number] - [id number] LENS Right: Bradford 07/29/2023 [id number] / Implanted: Qty: 1 on 08/04/2020 by Dev Flor MD at [facility] Eye 1 [id number] / N/A documented as of this encounter Procedures Procedure Name Priority Date/Time Associated Diagnosis Comme nts CONSENT/REFUSAL FOR Routine 07/26/2020 4:32 PM DIAGNOSIS AND TREATMENT MANAGER OUTREACH ASSIGNMENT OF BENEFITS Routine 07/26/2020 4:31 PM MANAGER OUTREACH CONSENT/REFUSAL FOR Routine 07/26/2020 4:31 PM DIAGNOSIS AND TREATMENT MANAGER OUTREACH ASSIGNMENT OF BENEFITS Routine 07/26/2020 4:31 PM MANAGER OUTREACH PHYSICIAN ORDERS Routine 07/26/2020 12:01 AM MANAGER OUTREACH documented in this encounter Results Not on filedocumented in this encounter Visit Diagnoses Diagnosis Cataract, nuclear sclerotic senile, righ t - Primary documented in this encounter Administered Medications Medication Order MAR Action Action Date Dose Rate Site balanced salt irrig soln comb1 Given 08/04/2020 10:54 AM MANAGER OUTREACH 500 mL (BSS PLUS) ophthalmic solution 500 mL bag PRN, Starting Sun08/04/20 at 1054, Until Discontinued, Routine, Intra-op carbachoL (MIOSTAT) 0.01 % intraocular Given 08/04/2020 10:54 AM MANAGER OUTREACH 1.5 mL injection PRN, Starting Sun08/04/20 at 1054, Until Discontinued, Routine, Intra-op ceFAZolin (ANCEF) injection Given 08/04/2020 11:02 AM MANAGER OUTREACH 0.02 mg Righ t Eye PRN, Starting Sun08/04/20 at 1102, Until Discontinued, DEBORAH, Intra-op dexamethasone (DECADRON PHOSPHATE) Given 08/04/2020 11:02 AM MANAGER OUTREACH 0.3 mL Right Eye injection PRN, Starting Sun08/04/20 at 1102, Until Discontinued, Routine, Intra-op DUOVISC (DUOVISC VISCO ELASTIC) 3 %-4 %(0.5 Given 08/04/2020 10:55 AM MANAGER OUTREACH 1 Kit mL) 1 % (0.55 mL) intraocular injection PRN, Starting Sun08/04/20 at 1055, Until Discontinued, Routine, Intra-op EPINEPHrine 1:1,000 (1 mg/mL) Given 08/04/2020 10:50 AM MANAGER OUTREACH 0.5 mg Right Eye (ADRENALIN) injection PRN, Starting Sun08/04/20 at 1050, Until Discontinued, Routine, Intra-op eye block syringe 11 mL Given 08/04/2020 10:41 AM MANAGER OUTREACH 10 mL PRN, Starting Sun08/04/20 at 1041, Until Discontinued, Intra-op gentamicin injection Given 08/04/2020 11:02 AM MANAGER OUTREACH 0.2 mL Righ t Eye PRN, Starting Sun08/04/20 at 1102, Until Discontinued, DEBORAH, Intra-op Hyaluronidase, Human Recomb. Given 08/04/2020 10:41 AM MANAGER OUTREACH 150 U nits Right Eye (HYLENEX) injection PRN, Starting Sun08/04/20 at 1041, Until Discontinued, Routine, Intra-op cnlxyuaf-tkcdaaaem-nnmjvxkstjtkd (MAXITROL) Given 12/2020 11:03 AM 0.5 Inches 3.5 mg/g-10,000 unit/g-0.1 % ophthalmic MANAGER OUTREACH ointment PRN, Starting Sun08/04/20 at 1103, Until Discontinued, Routine, Intra-op sodium chloride (NS) injection Given 08/04/2020 11:02 AM MANAGER OUTREACH 10 mL Righ t Eye PRN, Starting Sun08/04/20 at 1102, Until Discontinued, Routine, Intra-op water for irrigation irrigation Given 08/04/2020 10:46 AM MANAGER OUTREACH 30 mL Right Eye solution PRN, Starting Sun08/04/20 at 1046, Until Discontinued, Routine, Intra-op Medication Order MAR Action Action Date Dose Rate Site lactated ringers IV infusion New Bag 08/04/2020 8:42 AM MANAGER OUTREACH 1,000 mL 42 mL/hr 1,000 mL at 42 mL/hr, 1,000 mL, IV Infusion, ONCE, 1 dose, Sun08/04/20 at 0830, Routine, DSU Pre-op mydriatic #5 ophthalmic solution 0.5 mL Given 08/04/2020 8:51 A M MANAGER OUTREACH 0.5 mL syringe 0.5 mL, Right Eye, ONCE, 1 dose, Sun08/04/20 at 0830, Routine documented in this encounter Insurance Payer Benefit Plan Subscriber ID Effective Phone Address Typ e / Group Dates MEDICARE MEDICARE [id number] 2018-Pres [phone] [facility] care PART A & B ent [phone] [id number] WANDA MELENDEZ [phone] [place]UT[place] [id number] 2018-Pres Eha nimo DOMINGUEZ ent Supplement documented as of this encounter
--- OUTSIDE RECORDS SUMMARY | 2020-08-16 16:05 | XMS REPORT | Summary of Care ---
:1955 Author Organization [facility] Address [address] [place] [address] Care Team Providers Name Role Phone Agueda Benito Lopez Primary Care Provider Encounter Details Date Type Department Care Team Description 08/04/2020 Orders Only [facility] Doctor Unassigned, No [address] [facility] [place] [address] [address] [place] [address] Allergies Active Allergy Reactions Severity Noted Date [...] daily. VITAMIN E, BULK, MISC 0 Active Fvlnn-3-DGM-EPA-Fish Oil Take by mouth. 0 Active 1,200 [...] with No / Unsure 08/02/2020 3:36 PM BACK END ARCHITECT someone who was confirmed or suspected to [...] of this encounter Implants Implanted Type Area Injection Mold Tooling Technician Device Shelf Model / Identifier Expiration Date Ser ial / Lot Lens, Bradford #[id number] - [id number] LENS Right: Bradford 07/29/2023 [id number] / Implanted: Qty: 1 on 08/04/2020 by Dev Flor MD at [facility] Eye 1 [id number] / N/A documented as of this encounter Procedures Procedure Name Priority Date/Time Associated Diagnosis Comme nts PATIENT QUESTIONNAIRE Routine 08/04/2020 12:01 AM BACK END ARCHITECT documented in this encounter Results Not on filedocumented in this encounter Insurance Payer Benefit Plan Subscriber ID Effective Phone Address Typ e / Group Dates MEDICARE MEDICARE [id number] 2018-Pres [phone] [facility] PART A & B ent [id number] WANDA MELENDEZ [phone] [place]UT[place] MUTUAL [place] [id number] 2018-Pres Eha nimo DOMINGUEZ ent Supplement documented as of this encounter
--- NOTE | 2020-08-16 17:15 | RAD REPORT ---
EXAM DESCRIPTION: CT - Head Brain Wo Cont - 08/16/2020 4:49 pm CLINICAL HISTORY: Head injury status post fall. Headache COMPARISON: None. TECHNIQUE: Computed axial tomography of the head was obtained. IV contrast was not requested. All CT scans are performed using dose optimization technique as appropriate and may include automated exposure control or mA/KV adjustment according to patient size. FINDINGS: Left frontal scalp swelling. An intracranial bleed is not seen . The ventricles are normal in caliber. No extra-axial fluid collection is noted. Small amount of fluid within the sphenoid sinus may indicate acute sinusitis. . Mild to moderate mucoperiosteal thickening ethmoid sinus IMPRESSION: No acute intracranial abnormality is seen. If patient's symptoms persist MRI of the bra in would be recommended.
--- NOTE | 2020-08-16 17:29 | ER ---
Nurse's Notes [facility] Name: Sarina Carl Age: 65 yrs Sex: Female : 1955 Arrival Date: 08/16/2020 Time: 16:04 Bed Waiting Private MD: Benito Romeo Diagnosis: Fall on same level from slipping, tripping and stumbling;Superficial injury of head;Contusion of other part of head-left forehead;Pain in left knee;Abrasion of knee Presentation: 08/16 16:17 Chief complaint: Patient states: At 1530, tripped and fell forward, hitting forehead, L ca1 arm, L hand and L knee. Bruise and abrasion on L forehead. Denies LOC, not on Blood thinners. Coronavirus screen: Client denies travel out of the [place] in the last 14 days. At this time, the client does not indicate any symptoms associated with coronavirus-19. Ebola Screen: Patient negative for fever greater than or equal to 101.5 degrees Fahrenheit, and additional compatible Ebola Virus Disease symptoms Patient denies exposure to infectious person. Patient denies travel to an Ebola-affected area in the 21 days before illness onset. No symptoms or risks identified at this time. Initial Sepsis Screen: Does the patient meet any 2 criteria? No. Patient's initial sepsis screen is negative. Does the patient have a suspected source of infection? No. Patient's initial sepsis screen is negative. Risk Assessment: Do you want to hurt yourself or someone else? Patient reports no desire to harm self or others. Onset of symptoms was August 16, 2020. 16:17 Method Of Arrival: Ambulatory ca1 16:17 Acuity: ROBEL 4 ca1 Historical: - Allergies: 16:21 Codeine; ca1 16:21 Latex, Natural Rubber; ca1 - PMHx: 16:21 High Cholesterol; Thyroid problem; ca1 - PSHx: 16:21 Knee surgery; Breast biopsy; ca1 - Immunization history:: Adult Immunizations up to date, Pneumococcal vaccine is up to date, Flu vaccine is up to date. - Social history:: Smoking status: Patient denies any tobacco usage or history of. Screenin:33 Abuse screen: Denies threats or abuse. Denies injuries from another. Nutritional ca1 screening: No deficits noted. Tuberculosis screening: No symptoms or risk factors identified. Fall Risk Fall in past 12 months (25 points). Assessment: 17:33 General: Appears in no apparent distress. comfortable, Behavior is calm, cooperative, ca1 appropriate for age. Pain: Complains of pain in left arm and left knee. Neuro: Level of Consciousness is awake, alert, obeys commands, Oriented to person, place, time, situation. Derm: Skin is intact, is healthy with good turgor, Skin is pink, warm \T\ dry. Injury Description: Abrasion sustained to forehead was sustained less than 30 minutes ago. Vital Signs: 16:17 Pulse 75; Resp 16 S; Temp 99(TE); Pulse Ox 99% on R/A; Weight 89.81 kg (R); Height 5 ca1 ft. 2 in. (157.48 cm) (R); Pain 7/10; 16:21 BP 164 / 86; ca1 16:17 Body Mass Index 36.21 (89.81 kg, 157.48 cm) ca1 ED Course: 16:04 Patient arrived in ED. as 16:04 Benito Romeo MD is Private Physician. as 16:20 Ludmila Kothari F[facility]-C [facility] kb 16:20 Ruslan Melgar MD is Attending Physician. kb 16:20 Triage completed. ca1 16:21 Arm band placed on right wrist. ca1 16:49 CT Head Brain wo Cont In Process Unspecified. EDMS 16:50 Knee Left 3 View XRAY In Process Unspecified. EDMS 17:33 Patient has correct armband on for positive identification. ca1 17:34 No provider procedures requiring assistance completed. Patient did not have IV access ca1 during this emergency room visit. Administered Medications: No medications were administered Outcome: 17:29 Discharge ordered by . kb 17:34 Discharged to home ambulatory. ca1 17:34 Condition: stable 17:34 Discharge instructions given to patient, Instructed on discharge instructions, follow up and referral plans. Demonstrated understanding of instructions, follow-up care. 17:34 Patient left the ED. ca1 Signatures: Dispatcher [employer] EDMS Ludmila Kothari FNP-C FNP-Ckb Martinez, Amelia as Elen Wilson RN RN ca1
--- NOTE | 2020-08-16 17:29 | EDPHYS ---
Physician Documentation [facility] Name: Sarina Carl Age: 65 yrs Sex: Female : 1955 Arrival Date: 08/16/2020 Time: 16:04 Bed Waiting Private MD: Benito Romeo ED Physician Ruslan Melgar HPI: 08/16 17:52 This 65 yrs old Female presents to ER via Ambulatory with complaints of Fall kb Injury. 17:52 Details of fall: The patient fell from an upright position, while walking. Onset: The kb symptoms/episode began/occurred just prior to arrival. Associated injuries: The patient sustained injury to the head, contusion, hematoma, pain, swelling, tenderness, left knee, abrasion, painful injury, swelling. Severity of symptoms: At their worst the symptoms were mild, moderate, in the emergency department the symptoms are unchanged. The patient has not experienced similar symptoms in the past. The patient has not recently seen a physician. Pt tripped over step in a driveway. Denies loc, dizziness.. Historical: - Allergies: 16:21 Codeine; ca1 16:21 Latex, Natural Rubber; ca1 - PMHx: 16:21 High Cholesterol; Thyroid problem; ca1 - PSHx: 16:21 Knee surgery; Breast biopsy; ca1 - Immunization history:: Adult Immunizations up to date, Pneumococcal vaccine is up to date, Flu vaccine is up to date. - Social history:: Smoking status: Patient denies any tobacco usage or history of. ROS: 17:46 Constitutional: Negative for fever, chills, and weight loss, Cardiovascular: Negative kb for chest pain, palpitations, and edema, Respiratory: Negative for shortness of breath, cough, wheezing, and pleuritic chest pain, Abdomen/GI: Negative for abdominal pain, nausea, vomiting, diarrhea, and constipation, Neuro: Negative for headache, weakness, numbness, tingling, and seizure. 17:46 MS/extremity: Positive for abrasion, pain, swelling, tenderness, of the left knee. 17:46 Skin: Positive for hematoma, of the left side of forehead. Exam: 17:50 Constitutional: This is a well developed, well nourished patient who is awake, alert, kb and in no acute distress. Chest/axilla: Normal chest wall appearance and motion. Nontender with no deformity. No lesions are appreciated. Cardiovascular: Regular rate and rhythm with a normal S1 and S2. No gallops, murmurs, or rubs. Normal PMI, no JVD. No pulse deficits. Respiratory: Lungs have equal breath sounds bilaterally, clear to auscultation and percussion. No rales, rhonchi or wheezes noted. No increased work of breathing, no retractions or nasal flaring. Abdomen/GI: Soft, non-tender, with normal bowel sounds. No distension or tympany. No guarding or rebound. No evidence of tenderness throughout. Neuro: Awake and alert, GCS 15, oriented to person, place, time, and situation. Cranial nerves II-XII grossly intact. Motor strength 5/5 in all extremities. Sensory grossly intact. Cerebellar exam normal. Normal gait. 17:50 Head/face: Noted is no obvious of injury or deformity except abrasion(s), that are mild, of the left side of forehead, contusion, that is superficial, of the left side of forehead, hematoma, that is mild, of the left side of forehead. 17:50 Musculoskeletal/extremity: Extremities: grossly normal except: noted in the left knee: abrasion, ecchymosis, pain, swelling, tenderness, ROM: intact in all extremities, Circulation is intact in all extremities. Sensation intact. Vital Signs: 16:17 Pulse 75; Resp 16 S; Temp 99(TE); Pulse Ox 99% on R/A; Weight 89.81 kg (R); Height 5 ca1 ft. 2 in. (157.48 cm) (R); Pain 7/10; 16:21 BP 164 / 86; ca1 16:17 Body Mass Index 36.21 (89.81 kg, 157.48 cm) ca1 MDM: 16:20 Patient medically screened. kb 17:46 Data reviewed: vital signs, nurses notes. Data interpreted: Pulse oximetry: on room air kb is 99 %. Interpretation: normal. Counseling: I had a detailed discussion with the patient and/or guardian regarding: the historical points, exam findings, and any diagnostic results supporting the discharge/admit diagnosis, radiology results, the need for outpatient follow up, a family practitioner, to return to the emergency department if symptoms worsen or persist or if there are any questions or concerns that arise at home. 08/16 16:20 Order name: Knee Left 3 View XRAY kb 08/16 16:20 Order name: CT Head Brain wo Cont; Complete Time: 17:26 kb Administered Medications: No medications were administered Disposition: 19:00 Co-signature as Attending Physician, Ruslan Melgar MD I agree with the assessment and [facility] plan of care. Disposition: 08/16/20 17:29 Discharged to Home. Impression: Fall on same level from slipping, tripping and stumbling, Superficial injury of head, Contusion of other part of head - left forehead, Pain in left knee, Abrasion of knee. - Condition is Stable. - Discharge Instructions: Hematoma, [id number], Head Injury, Adult, [id number], Knee Pain, [id number]. - Medication Reconciliation Form, Thank You Letter, Antibiotic Education, Prescription Opioid Use form. - Follow up: Emergency Department; When: As needed; Reason: Worsening of condition. Follow up: Private Physician; When: 2 - 3 days; Reason: Recheck today's complaints, Continuance of care, Re-evaluation by your physician. Signatures: Dispatcher [employer] EDLudmila Rodriguez, CASH MANAGEMENT COORDINATOR-C CASH MANAGEMENT COORDINATOR-Rub Ruslan Melgar MD MD cha Acob, Elen, RN RN ca1 Corrections: (The following items were deleted from the chart) 17:34 17:29 08/16/2020 17:29 Discharged to Home. Impression: Fall on same level from ca1 slipping, tripping and stumbling; Superficial injury of head; Contusion of other part of head - left forehead; Pain in left knee; Abrasion of knee. Condition is Stable. Forms are Medication Reconciliation Form, Thank You Letter, Antibiotic Education, Prescription Opioid Use. Follow up: Emergency Department; When: As needed; Reason: Worsening of condition. Follow up: Private Physician; When: 2 - 3 days; Reason: Recheck today's complaints, Continuance of care, Re-evaluation by your physician. kb 17:55 17:52 Pt tripped over step in a driveway. kb kb
[2020-08-16 17:39] VITALS: BP 164/86; TEMP 99; O2SAT 99
--- NOTE | 2020-08-16 18:50 | RAD REPORT ---
EXAM DESCRIPTION: RAD - Knee Left 3 View - 08/16/2020 4:50 pm CLINICAL HISTORY: Left knee pain status post injury FINDINGS: No acute fracture or dislocation seen. Several bony/calcific densities along the posterior aspect of the knee may represent loose bodies
== END 2020-08-16 17:34 | disposition home or self-care (01) ==
LOC: ER 16:01
DX: S80.212A Abrasion, left knee, initial encounter (principal); S00.83XA Contusion of other part of head, initial encounter; W01.0XXA Fall on same level from slipping, tripping and stumbling without subsequent striking against object, initial encounter; Y92.008 Other place in unspecified non-institutional (private) residence as the place of occurrence of the external cause; E78.00 Pure hypercholesterolemia, unspecified
CPT/HCPCS: 70450; 99283

== ENCOUNTER 2023-05-26 12:39 | Emergency (ER) | payer OTHER ==
--- OUTSIDE RECORDS SUMMARY | 2023-05-26 13:21 | XMS REPORT | Continuity of Care Document ---
:1955 Author Organization [facility] t Address [address] [facility] [address] [place] [address] Care Team Providers Name Role Phone MARGOTH CEVALLOS Jessica Primary Care Physician Unavailable Marjorie Black Attending Clinician Unavailable DEV JADE Attending Clinician Unavailable RADHA BIGGS Attending Clinician Unavailable Angelica Chavarria MD Attending Clinician ANGELICA CHAVARRIA Attending Clinician Unavailable Doctor Unassigned, [place] Attending Clinician Unavailable DARRYL PONCE Attending Clinician Unavailable Nurse, David Bernal Attending Clinician Unavailable Dario Gay DO Attending Clinician Nurse, Gary Pob Immunization Attending Clinician Unavailable DARIO GAY Attending Clinician Unavailable LAB90 Attending Clinician Unavailable Radiology Attending Clinician Unavailable RADIOLOGY Attending Clinician Unavailable Dev Jade MD Attending Clinician Only, Adc Test Attending Clinician Unavailable Pob, [facility] Lab Main Attending Clinician Unavailable Reny Beth PA-C Attending Clinician RENY BETH Attending Clinician Unavailable PAULA HENRIQUEZ Attending Clinician Unavailable PAULA HENRIQUEZ Attending Clinician Unavailable 1, [facility] Sleep Lab Bed Attending Clinician Unavailable Paula Henriquez MD Attending Clinician Sarah Haile MD Attending Clinician Pob1, [facility] Attending Clinician Unavailable SARAH HAILE Attending Clinician Unavailable DEV JADE Admitting Clinician Unavailable Dev Jade MD Admitting Clinician Payers Payer Name Policy Type Policy Number Effective Date Expiration Date S anisha MEDICARE PART A [id number] 2018 \T\ B 00:00:00 [employer] [place] [employer] [id number] 2018 00:00:00 MEDICARE-PART B 5 [id number] 2020 00:00:00 [employer] OF 4 [id number] 2020 [place] [employer] 00:00:00 Problems Condition Condition Condition Status Onset Resolution Last Treating Co mments Source Name Details Category Date Date Treatment Clinician Date ANDRIY on ANDRIY on Disease Active Univers CPAP CPAP 05 ity of 00:00: [place] 00 Medical Branch Constipati Constipati Disease Active U nivers on, on, 4-19 ity [place] constip[place] constipati Br anch on type on type History of History of Disease Active U nivers loop loop 4-19 [place] Medical excision excision Branch procedure procedure (LEEP) of (LEEP) of cervix cervix Depression Depression Problem C ommon [facility] Hypothyroi Hypothyroi Problem C ommon dism dism [facility] Anxiety Anxiety Problem Common [facility] Allergic Allergic Problem Commo n rhinitis rhinitis Spirit due to due to - [facility] pollen pollen [facility] Hyperlipid HLD Problem Commo n aemia (hyperlipi Spirit demia) [facility] Sleep Sleep Problem Common apnea apnea [facility] Allergies, Adverse Reactions, Alerts Allergy Allergy Status Severity Reaction(s) Onset Inactive Treating Comm ents Source Name Type Date Date Clinician Latex Propensi Active Hives Univers ty to 04 ity of adverse 00:00: [place] reaction 00 Medical s Branch LATEX DRUG Active Med Hives Univers INGREDI 104 ity of 00:00: [place] 00 Medical Branch Codeine Propensi Active Nausea Univers ty to and/or 11-15 ity of adverse Vomiting 00:00: [place] reaction 00 Medical s Branch CODEINE DRUG Active Med N/V Univers INGREDI 11-15 ity of 00:00: [place] 00 Medical Branch iodine iodine Active anaphylaxis Commo n [facility] codeine codeine Active nausea and Comm on vomiting [facility] Social History Social Habit Start Date Stop Date Quantity Comments Source Exposure to Not sure University of SARS-CoV-2 [place] [facility] (event) Branch History SDOH University o f Alcohol Frequency [place] M edical [facility] History SDOH University o f Alcohol Std [place] [facility] Drinks Branch History SDOH University o f Alcohol Binge [place] [facility] al Branch History of Common Spirit - Tobacco Use [facility] Sex Assigned At Common Sp juan - [facility] Alcohol intake 2021-11-09 2021-11-09 Current drinker Unive rsity of 00:00:00 00:00:00 of alcohol [place] [facility] (finding) Branch Alcohol Comment 2017-11-15 2017-11-15 social Universit y of 00:00:00 00:00:00 [facility] Tobacco use and 2017-11-15 2017-11-15 Never used Universit y of exposure 00:00:00 00:00:00 [facility] Smoking Status Start Date Stop Date Source Never Smoker [facility] Former smoker 2017-11-15 00:00:00 2017-11-15 00:00:[address] [facility] Medications Ordered Filled Start Stop Current Ordering Indication Dosage Frequency Signature Comments Components Source Medication Medication Date Date Medication? Clinician (SIG) Name Name Bryce Wu 2021-07 No 1{table QD Atorvastat n Calcium n Calcium 0-19 t} in Calcium 20 MG 20 MG 00:00: 20 MG 00 Atorvastati Atorvastati 2021-07 No 1{table QD Atorvastat n Calcium n Calcium 0-19 t} in Calcium 20 MG 20 MG 00:00: 20 MG 00 Atorvastati Atorvastati 2021-07 No 1{table QD Atorvastat n Calcium n Calcium 0-19 t} in Calcium 20 MG 20 MG 00:00: 20 MG 00 Atorvastati Atorvastati 2021-07 No 1{table QD Atorvastat n Calcium n Calcium 0-19 t} in Calcium 20 MG 20 MG 00:00: 20 MG 00 FEXOFENADIN Yes Take by Uni vers E HCL 3-03 mouth. ity of (RADHA 12:53: [place] ALLERGY 42 Medical ORAL) Branch multivitami Yes 1{tbl} Take 1 Un osorio n tablet 3-03 tablet by ity of 12:53: mouth [place] [id number] daily. Medical Branch VITAMIN E, Yes Univers BULK, MISC 3-03 ity of 12:53: [address] Branch Couch-3-DHA Yes Take by Uni vers -EPA-Fish 3-03 mouth. ity of Oil 1,200 12:53: [place] (144-216) 42 Medical mg Cap Branch Cyanocobala Yes Take by Uni vers min 1,000 3-03 mouth. ity of mcg tablet 12:53: [address] Branch CALCIUM Yes Take by Univers CARBONATE/V 3-03 mouth. ity of ITAMIN D2 12:53: [place] (CALCIUM + 42 Medical VITAMIN D Branch ORAL) pantoprazol Yes Univer s e 40 mg EC 3-13 ity of tablet 00:00: 00 [facility] Branch atorvastati Yes 20mg 20 mg. Univ ers n 10 mg 4-13 ity of tablet 00:00: Medical Branch buPROPion Yes Univers XL 150 mg 4-13 ity of 24 hr 00:00: [place] tablet 00 Medical Branch citalopram Yes Univers 20 mg 4-13 ity of tablet 00:00: Medical Branch SYNTHROID Yes Univers 150 mcg 4-13 ity of tablet 00:00: Medical Branch triamcinolo Yes Univer s ne 4-13 ity of acetonide 00:00: [place] 0.1 % cream Medical Branch metroNIDAZO Yes Univer s LE 0.75 % 2-01 ity of gel 00:00: [place] 00 [facility] Branch Pantoprazol Pantoprazol No Pantoprazo e Sodium 40 e Sodium 40 le Sodium MG MG 40 MG Radha Radha No QD Radha Allergy 180 Allergy 180 Allergy MG MG 180 MG Fenofibrate Fenofibrate No 1{table QD Fenofibrat 145 MG 145 MG t_with_ e 145 MG food} Probiotic Probiotic No BID Probiotic one billion one billion one acidophilll acidophilll billion ous ous acidophill lous buPROPion buPROPion No buPROPion HCl ER (XL) HCl ER (XL) HCl ER 150 MG 150 MG (XL) 150 MG Vitamin E Vitamin E No 1{capsu QD Vitamin E 180 MG (400 180 MG (400 le} 180 MG UNIT) UNIT) (400 UNIT) Fish Oil Fish Oil No 1{capsu QD Fish Oil 1000 MG 1000 MG le} 1000 MG Multi For Multi For No Multi For Her - Her - Her - Triamcinolo Triamcinolo No 1{appli BID Triamcinol ne ne cation} one Acetonide Acetonide Acetonide 0.1 % 0.1 % 0.1 % Citalopram Citalopram No 1{table QD Citalopram Hydrobromid Hydrobromid t} Hydrobromi e 20 MG e 20 MG de 20 MG Atorvastati Atorvastati No 1{table QD Atorvastat n Calcium n Calcium t} in Calcium 10 MG 10 MG 10 MG Vitamin B12 Vitamin B12 No 1{table QD Vitamin TR 2000 MCG TR 2000 MCG t} B12 TR 2000 MCG Calcium + Calcium + No 1{table QD Calcium + Vitamin D3 Vitamin D3 t_with_ Vitamin D3 600-10 600-10 a_meal} 600-10 MG-MCG MG-MCG MG-MCG Synthroid Synthroid No QD Synthroid 150 MCG 150 MCG 150 MCG Pantoprazol Pantoprazol No Pantoprazo e Sodium 40 e Sodium 40 le Sodium MG MG 40 MG Radha Radha No QD Radha Allergy 180 Allergy 180 Allergy MG MG 180 MG Fenofibrate Fenofibrate No 1{table QD Fenofibrat 145 MG 145 MG t_with_ e 145 MG food} Probiotic Probiotic No BID Probiotic one billion one billion one acidophilll acidophilll billion ous ous acidophill lous buPROPion buPROPion No buPROPion HCl ER (XL) HCl ER (XL) HCl ER 150 MG 150 MG (XL) 150 MG Vitamin E Vitamin E No 1{capsu QD Vitamin E 180 MG (400 180 MG (400 le} 180 MG UNIT) UNIT) (400 UNIT) Fish Oil Fish Oil No 1{capsu QD Fish Oil 1000 MG 1000 MG le} 1000 MG Multi For Multi For No Multi For Her - Her - Her - Triamcinolo Triamcinolo No 1{appli BID Triamcinol ne ne cation} one Acetonide Acetonide Acetonide 0.1 % 0.1 % 0.1 % Citalopram Citalopram No 1{table QD Citalopram Hydrobromid Hydrobromid t} Hydrobromi e 20 MG e 20 MG de 20 MG Atorvastati Atorvastati No 1{table QD Atorvastat n Calcium n Calcium t} in Calcium 10 MG 10 MG 10 MG Vitamin B12 Vitamin B12 No 1{table QD Vitamin TR 2000 MCG TR 2000 MCG t} B12 TR 2000 MCG Calcium + Calcium + No 1{table QD Calcium + Vitamin D3 Vitamin D3 t_with_ Vitamin D3 600-10 600-10 a_meal} 600-10 MG-MCG MG-MCG MG-MCG Synthroid Synthroid No QD Synthroid 150 MCG 150 MCG 150 MCG Pantoprazol Pantoprazol No Pantoprazo e Sodium 40 e Sodium 40 le Sodium MG MG 40 MG Radha Radha No QD Radha Allergy 180 Allergy 180 Allergy MG MG 180 MG Fenofibrate Fenofibrate No 1{table QD Fenofibrat 145 MG 145 MG t_with_ e 145 MG food} Probiotic Probiotic No BID Probiotic one billion one billion one acidophilll acidophilll billion ous ous acidophill lous buPROPion buPROPion No buPROPion HCl ER (XL) HCl ER (XL) HCl ER 150 MG 150 MG (XL) 150 MG Vitamin E Vitamin E No 1{capsu QD Vitamin E 180 MG (400 180 MG (400 le} 180 MG UNIT) UNIT) (400 UNIT) Fish Oil Fish Oil No 1{capsu QD Fish Oil 1000 MG 1000 MG le} 1000 MG Multi For Multi For No Multi For Her - Her - Her - Triamcinolo Triamcinolo No 1{appli BID Triamcinol ne ne cation} one Acetonide Acetonide Acetonide 0.1 % 0.1 % 0.1 % Citalopram Citalopram No 1{table QD Citalopram Hydrobromid Hydrobromid t} Hydrobromi e 20 MG e 20 MG de 20 MG Atorvastati Atorvastati No 1{table QD Atorvastat n Calcium n Calcium t} in Calcium 10 MG 10 MG 10 MG Vitamin B12 Vitamin B12 No 1{table QD Vitamin TR 2000 MCG TR 2000 MCG t} B12 TR 2000 MCG Calcium + Calcium + No 1{table QD Calcium + Vitamin D3 Vitamin D3 t_with_ Vitamin D3 600-10 600-10 a_meal} 600-10 MG-MCG MG-MCG MG-MCG Radha Radha No QD Radha Allergy 180 Allergy 180 Allergy MG MG 180 MG Citalopram Citalopram No 1{table QD Citalopram Hydrobromid Hydrobromid t} Hydrobromi e 20 MG e 20 MG de 20 MG Pantoprazol Pantoprazol No Pantoprazo e Sodium 40 e Sodium 40 le Sodium MG MG 40 MG Fenofibrate Fenofibrate No 1{table QD Fenofibrat 145 MG 145 MG t_with_ e 145 MG food} Probiotic Probiotic No BID Probiotic one billion one billion one acidophilll acidophilll billion ous ous acidophill lous buPROPion buPROPion No buPROPion HCl ER (XL) HCl ER (XL) HCl ER 150 MG 150 MG (XL) 150 MG Vitamin E Vitamin E No 1{capsu QD Vitamin E 180 MG (400 180 MG (400 le} 180 MG UNIT) UNIT) (400 UNIT) Fish Oil Fish Oil No 1{capsu QD Fish Oil 1000 MG 1000 MG le} 1000 MG Multi For Multi For No Multi For Her - Her - Her - Triamcinolo Triamcinolo No 1{appli BID Triamcinol ne ne cation} one Acetonide Acetonide Acetonide 0.1 % 0.1 % 0.1 % Synthroid Synthroid No QD Synthroid 150 MCG 150 MCG 150 MCG Atorvastati Atorvastati No 1{table QD Atorvastat n Calcium n Calcium t} in Calcium 10 MG 10 MG 10 MG Vitamin B12 Vitamin B12 No 1{table QD Vitamin TR 2000 MCG TR 2000 MCG t} B12 TR 2000 MCG Calcium + Calcium + No 1{table QD Calcium + Vitamin D3 Vitamin D3 t_with_ Vitamin D3 600-10 600-10 a_meal} 600-10 MG-MCG MG-MCG MG-MCG Radha Radha No QD Radha Allergy 180 Allergy 180 Allergy MG MG 180 MG Citalopram Citalopram No 1{table QD Citalopram Hydrobromid Hydrobromid t} Hydrobromi e 20 MG e 20 MG de 20 MG Pantoprazol Pantoprazol No Pantoprazo e Sodium 40 e Sodium 40 le Sodium MG MG 40 MG Fenofibrate Fenofibrate No 1{table QD Fenofibrat 145 MG 145 MG t_with_ e 145 MG food} Probiotic Probiotic No BID Probiotic one billion one billion one acidophilll acidophilll billion ous ous acidophill lous buPROPion buPROPion No buPROPion HCl ER (XL) HCl ER (XL) HCl ER 150 MG 150 MG (XL) 150 MG Vitamin E Vitamin E No 1{capsu QD Vitamin E 180 MG (400 180 MG (400 le} 180 MG UNIT) UNIT) (400 UNIT) Fish Oil Fish Oil No 1{capsu QD Fish Oil 1000 MG 1000 MG le} 1000 MG Multi For Multi For No Multi For Her - Her - Her - Triamcinolo Triamcinolo No 1{appli BID Triamcinol ne ne cation} one Acetonide Acetonide Acetonide 0.1 % 0.1 % 0.1 % Synthroid Synthroid No QD Synthroid 150 MCG 150 MCG 150 MCG Atorvastati Atorvastati No 1{table QD Atorvastat n Calcium n Calcium t} in Calcium 10 MG 10 MG 10 MG Vitamin B12 Vitamin B12 No 1{table QD Vitamin TR 2000 MCG TR 2000 MCG t} B12 TR 2000 MCG buPROPion buPROPion No buPROPion HCl ER (XL) HCl ER (XL) HCl ER 150 MG 150 MG (XL) 150 MG Vitamin E Vitamin E No 1{capsu QD Vitamin E 180 MG (400 180 MG (400 le} 180 MG UNIT) UNIT) (400 UNIT) Vitamin B12 Vitamin B12 No 1{table QD Vitamin TR 2000 MCG TR 2000 MCG t} B12 TR 2000 MCG Fish Oil Fish Oil No 1{capsu QD Fish Oil 1000 MG 1000 MG le} 1000 MG Fenofibrate Fenofibrate No 1{table QD Fenofibrat 145 MG 145 MG t_with_ e 145 MG food} Citalopram Citalopram No 1{table QD Citalopram Hydrobromid Hydrobromid t} Hydrobromi e 20 MG e 20 MG de 20 MG Probiotic Probiotic No BID Probiotic one billion one billion one acidophilll acidophilll billion ous ous acidophill lous Multi For Multi For No Multi For Her - Her - Her - Synthroid Synthroid No QD Synthroid 150 MCG 150 MCG 150 MCG Triamcinolo Triamcinolo No 1{appli BID Triamcinol ne ne cation} one Acetonide Acetonide Acetonide 0.1 % 0.1 % 0.1 % Calcium + Calcium + No 1{table QD Calcium + Vitamin D3 Vitamin D3 t_with_ Vitamin D3 600-10 600-10 a_meal} 600-10 MG-MCG MG-MCG MG-MCG Pantoprazol Pantoprazol No Pantoprazo e Sodium 40 e Sodium 40 le Sodium MG MG 40 MG Radha Radha No QD Radha Allergy 180 Allergy 180 Allergy MG MG 180 MG Atorvastati Atorvastati No 1{table QD Atorvastat n Calcium n Calcium t} in Calcium 10 MG 10 MG 10 MG Synthroid Synthroid No QD Synthroid 150 MCG 150 MCG 150 MCG Citalopram Citalopram No 1{table QD Citalopram Hydrobromid Hydrobromid t} Hydrobromi e 20 MG e 20 MG de 20 MG Fish Oil Fish Oil No 1{capsu QD Fish Oil 1000 MG 1000 MG le} 1000 MG Calcium + Calcium + No 1{table QD Calcium + Vitamin D3 Vitamin D3 t_with_ Vitamin D3 600-10 600-10 a_meal} 600-10 MG-MCG MG-MCG MG-MCG Multi For Multi For No Multi For Her - Her - Her - buPROPion buPROPion No buPROPion HCl ER (XL) HCl ER (XL) HCl ER 150 MG 150 MG (XL) 150 MG Pantoprazol Pantoprazol No Pantoprazo e Sodium 40 e Sodium 40 le Sodium MG MG 40 MG Probiotic Probiotic No BID Probiotic one billion one billion one acidophilll acidophilll billion ous ous acidophill lous Atorvastati Atorvastati No 1{table QD Atorvastat n Calcium n Calcium t} in Calcium 10 MG 10 MG 10 MG Radha Radha No QD Radha Allergy 180 Allergy 180 Allergy MG MG 180 MG Vitamin E Vitamin E No 1{capsu QD Vitamin E 180 MG (400 180 MG (400 le} 180 MG UNIT) UNIT) (400 UNIT) Vitamin B12 Vitamin B12 No 1{table QD Vitamin TR 2000 MCG TR 2000 MCG t} B12 TR 2000 MCG Triamcinolo Triamcinolo No 1{appli BID Triamcinol ne ne cation} one Acetonide Acetonide Acetonide 0.1 % 0.1 % 0.1 % Radha Radha No QD Radha Allergy 180 Allergy 180 Allergy MG MG 180 MG Calcium + Calcium + No 1{table QD Calcium + Vitamin D3 Vitamin D3 t_with_ Vitamin D3 600-10 600-10 a_meal} 600-10 MG-MCG MG-MCG MG-MCG Atorvastati Atorvastati No 1{table QD Atorvastat n Calcium n Calcium t} in Calcium 20 MG 20 MG 20 MG Fish Oil Fish Oil No 1{capsu QD Fish Oil 1000 MG 1000 MG le} 1000 MG Multi For Multi For No Multi For Her - Her - Her - Pantoprazol Pantoprazol No Pantoprazo e Sodium 40 e Sodium 40 le Sodium MG MG 40 MG Synthroid Synthroid No QD Synthroid 150 MCG 150 MCG 150 MCG Citalopram Citalopram No 1{table QD Citalopram Hydrobromid Hydrobromid t} Hydrobromi e 20 MG e 20 MG de 20 MG Vitamin E Vitamin E No 1{capsu QD Vitamin E 180 MG (400 180 MG (400 le} 180 MG UNIT) UNIT) (400 UNIT) Triamcinolo Triamcinolo No 1{appli BID Triamcinol ne ne cation} one Acetonide Acetonide Acetonide 0.1 % 0.1 % 0.1 % buPROPion buPROPion No buPROPion HCl ER (XL) HCl ER (XL) HCl ER 150 MG 150 MG (XL) 150 MG Vitamin B12 Vitamin B12 No 1{table QD Vitamin TR 2000 MCG TR 2000 MCG t} B12 TR 2000 MCG Probiotic Probiotic No BID Probiotic one billion one billion one acidophilll acidophilll billion ous ous acidophill lous Radha Radha No QD Radha Allergy 180 Allergy 180 Allergy MG MG 180 MG Calcium + Calcium + No 1{table QD Calcium + Vitamin D3 Vitamin D3 t_with_ Vitamin D3 600-10 600-10 a_meal} 600-10 MG-MCG MG-MCG MG-MCG Fish Oil Fish Oil No 1{capsu QD Fish Oil 1000 MG 1000 MG le} 1000 MG Multi For Multi For No Multi For Her - Her - Her - Pantoprazol Pantoprazol No Pantoprazo e Sodium 40 e Sodium 40 le Sodium MG MG 40 MG Synthroid Synthroid No QD Synthroid 150 MCG 150 MCG 150 MCG Citalopram Citalopram No 1{table QD Citalopram Hydrobromid Hydrobromid t} Hydrobromi e 20 MG e 20 MG de 20 MG Vitamin E Vitamin E No 1{capsu QD Vitamin E 180 MG (400 180 MG (400 le} 180 MG UNIT) UNIT) (400 UNIT) Triamcinolo Triamcinolo No 1{appli BID Triamcinol ne ne cation} one Acetonide Acetonide Acetonide 0.1 % 0.1 % 0.1 % buPROPion buPROPion No buPROPion HCl ER (XL) HCl ER (XL) HCl ER 150 MG 150 MG (XL) 150 MG Vitamin B12 Vitamin B12 No 1{table QD Vitamin TR 2000 MCG TR 2000 MCG t} B12 TR 2000 MCG Probiotic Probiotic No BID Probiotic one billion one billion one acidophilll acidophilll billion ous ous acidophill lous Radha Radha No QD Radha Allergy 180 Allergy 180 Allergy MG MG 180 MG Fish Oil Fish Oil No 1{capsu QD Fish Oil 1000 MG 1000 MG le} 1000 MG Citalopram Citalopram No 1{table QD Citalopram Hydrobromid Hydrobromid t} Hydrobromi e 20 MG e 20 MG de 20 MG Multi For Multi For No Multi For Her - Her - Her - Pantoprazol Pantoprazol No Pantoprazo e Sodium 40 e Sodium 40 le Sodium MG MG 40 MG Synthroid Synthroid No QD Synthroid 150 MCG 150 MCG 150 MCG Calcium + Calcium + No 1{table QD Calcium + Vitamin D3 Vitamin D3 t_with_ Vitamin D3 600-10 600-10 a_meal} 600-10 MG-MCG MG-MCG MG-MCG Vitamin E Vitamin E No 1{capsu QD Vitamin E 180 MG (400 180 MG (400 le} 180 MG UNIT) UNIT) (400 UNIT) Triamcinolo Triamcinolo No 1{appli BID Triamcinol ne ne cation} one Acetonide Acetonide Acetonide 0.1 % 0.1 % 0.1 % buPROPion buPROPion No buPROPion HCl ER (XL) HCl ER (XL) HCl ER 150 MG 150 MG (XL) 150 MG Vitamin B12 Vitamin B12 No 1{table QD Vitamin TR 2000 MCG TR 2000 MCG t} B12 TR 2000 MCG Probiotic Probiotic No BID Probiotic one billion one billion one acidophilll acidophilll billion ous ous acidophill lous Triamcinolo Triamcinolo No 1{appli BID Triamcinol ne ne cation} one Acetonide Acetonide Acetonide 0.1 % 0.1 % 0.1 % Fish Oil Fish Oil No 1{capsu QD Fish Oil 1000 MG 1000 MG le} 1000 MG buPROPion buPROPion No 1{table QD buPROPion HCl ER (XL) HCl ER (XL) t_in_th HCl ER 150 MG 150 MG e_morni (XL) 150 ng} MG Multi For Multi For No Multi For Her - Her - Her - Synthroid Synthroid No QD Synthroid 150 MCG 150 MCG 150 MCG Radha Radha No QD Radha Allergy 180 Allergy 180 Allergy MG MG 180 MG Calcium + Calcium + No 1{table QD Calcium + Vitamin D3 Vitamin D3 t_with_ Vitamin D3 600-10 600-10 a_meal} 600-10 MG-MCG MG-MCG MG-MCG Vitamin E Vitamin E No 1{capsu QD Vitamin E 180 MG (400 180 MG (400 le} 180 MG UNIT) UNIT) (400 UNIT) Probiotic Probiotic No BID Probiotic one billion one billion one acidophilll acidophilll billion ous ous acidophill lous Pantoprazol Pantoprazol No Pantoprazo e Sodium 40 e Sodium 40 le Sodium MG MG 40 MG Vitamin B12 Vitamin B12 No 1{table QD Vitamin TR 2000 MCG TR 2000 MCG t} B12 TR 2000 MCG Citalopram Citalopram No Citalopram Hydrobromid Hydrobromid Hydrobromi e 20 MG e 20 MG de 20 MG Radha Radha No QD Radha Allergy 180 Allergy 180 Allergy MG MG 180 MG Calcium + Calcium + No 1{table QD Calcium + Vitamin D3 Vitamin D3 t_with_ Vitamin D3 600-10 600-10 a_meal} 600-10 MG-MCG MG-MCG MG-MCG Atorvastati Atorvastati No 1{table QD Atorvastat n Calcium n Calcium t} in Calcium 20 MG 20 MG 20 MG Fish Oil Fish Oil No 1{capsu QD Fish Oil 1000 MG 1000 MG le} 1000 MG Multi For Multi For No Multi For Her - Her - Her - Pantoprazol Pantoprazol No Pantoprazo e Sodium 40 e Sodium 40 le Sodium MG MG 40 MG Synthroid Synthroid No QD Synthroid 150 MCG 150 MCG 150 MCG Citalopram Citalopram No 1{table QD Citalopram Hydrobromid Hydrobromid t} Hydrobromi e 20 MG e 20 MG de 20 MG Vitamin E Vitamin E No 1{capsu QD Vitamin E 180 MG (400 180 MG (400 le} 180 MG UNIT) UNIT) (400 UNIT) Triamcinolo Triamcinolo No 1{appli BID Triamcinol ne ne cation} one Acetonide Acetonide Acetonide 0.1 % 0.1 % 0.1 % buPROPion buPROPion No buPROPion HCl ER (XL) HCl ER (XL) HCl ER 150 MG 150 MG (XL) 150 MG Vitamin B12 Vitamin B12 No 1{table QD Vitamin TR 2000 MCG TR 2000 MCG t} B12 TR 2000 MCG Probiotic Probiotic No BID Probiotic one billion one billion one acidophilll acidophilll billion ous ous acidophill lous Radha Radha No QD Radha Allergy 180 Allergy 180 Allergy MG MG 180 MG Calcium + Calcium + No 1{table QD Calcium + Vitamin D3 Vitamin D3 t_with_ Vitamin D3 600-10 600-10 a_meal} 600-10 MG-MCG MG-MCG MG-MCG Fish Oil Fish Oil No 1{capsu QD Fish Oil 1000 MG 1000 MG le} 1000 MG Multi For Multi For No Multi For Her - Her - Her - Pantoprazol Pantoprazol No Pantoprazo e Sodium 40 e Sodium 40 le Sodium MG MG 40 MG Synthroid Synthroid No QD Synthroid 150 MCG 150 MCG 150 MCG Citalopram Citalopram No 1{table QD Citalopram Hydrobromid Hydrobromid t} Hydrobromi e 20 MG e 20 MG de 20 MG Vitamin E Vitamin E No 1{capsu QD Vitamin E 180 MG (400 180 MG (400 le} 180 MG UNIT) UNIT) (400 UNIT) Triamcinolo Triamcinolo No 1{appli BID Triamcinol ne ne cation} one Acetonide Acetonide Acetonide 0.1 % 0.1 % 0.1 % buPROPion buPROPion No buPROPion HCl ER (XL) HCl ER (XL) HCl ER 150 MG 150 MG (XL) 150 MG Vitamin B12 Vitamin B12 No 1{table QD Vitamin TR 2000 MCG TR 2000 MCG t} B12 TR 2000 MCG Probiotic Probiotic No BID Probiotic one billion one billion one acidophilll acidophilll billion ous ous acidophill lous Atorvastati Atorvastati No 1{table QD Atorvastat n Calcium n Calcium t} in Calcium 10 MG 10 MG 10 MG buPROPion buPROPion No buPROPion HCl ER (XL) HCl ER (XL) HCl ER 150 MG 150 MG (XL) 150 MG Synthroid Synthroid No QD Synthroid 150 MCG 150 MCG 150 MCG Calcium + Calcium + No 1{table QD Calcium + Vitamin D3 Vitamin D3 t_with_ Vitamin D3 600-10 600-10 a_meal} 600-10 MG-MCG MG-MCG MG-MCG Radha Radha No QD Radha Allergy 180 Allergy 180 Allergy MG MG 180 MG Fenofibrate Fenofibrate No 1{table QD Fenofibrat 145 MG 145 MG t_with_ e 145 MG food} Citalopram Citalopram No 1{table QD Citalopram Hydrobromid Hydrobromid t} Hydrobromi e 20 MG e 20 MG de 20 MG Probiotic Probiotic No BID Probiotic one billion one billion one acidophilll acidophilll billion ous ous acidophill lous Multi For Multi For No Multi For Her - Her - Her - Fish Oil Fish Oil No 1{capsu QD Fish Oil 1000 MG 1000 MG le} 1000 MG Pantoprazol Pantoprazol No Pantoprazo e Sodium 40 e Sodium 40 le Sodium MG MG 40 MG Vitamin B12 Vitamin B12 No 1{table QD Vitamin TR 2000 MCG TR 2000 MCG t} B12 TR 2000 MCG Triamcinolo Triamcinolo No 1{appli BID Triamcinol ne ne cation} one Acetonide Acetonide Acetonide 0.1 % 0.1 % 0.1 % Vitamin E Vitamin E No 1{capsu QD Vitamin E 180 MG (400 180 MG (400 le} 180 MG UNIT) UNIT) (400 UNIT) Calcium + Calcium + No 1{table QD Calcium + Vitamin D3 Vitamin D3 t_with_ Vitamin D3 600-10 600-10 a_meal} 600-10 MG-MCG MG-MCG MG-MCG Synthroid Synthroid No QD Synthroid 150 MCG 150 MCG 150 MCG Vital Signs Vital Name Observation Time Observation Value Comments Source height 2022-03-29 16:20:00 61 [in_i] [facility] weight 2022-03-29 16:20:00 206 [lb_av] [facility] bmi 2022-03-29 16:20:00 38.92 kg/m2 [facility] height 2022-03-22 14:40:00 61 [in_i] [facility] weight 2022-03-22 14:40:00 206.8 [lb_av] [facility] temperature 2022-03-22 14:40:00 97.3 [degF] [facility] 2022-03-22 14:40:00 39.07 kg/m2 [facility] oximetry 2022-03-22 14:40:00 97 % [facility] respiratory rate 2022-03-22 14:40:00 16 /min Comm on [facility] blood pressure 2022-03-22 14:40:00 136 mm[Hg] [facility] systolic [facility] blood pressure 2022-03-22 14:40:00 74 mm[Hg] [facility] diastolic [facility] height 2021-11-22 09:20:00 61 [in_i] [facility] weight 2021-11-22 09:20:00 206.2 [lb_av] [facility] temperature 2021-11-22 09:20:00 98.1 [degF] [facility] bmi 2021-11-22 09:20:00 38.96 kg/m2 [facility] oximetry 2021-11-22 09:20:00 96 % [facility] respiratory rate 2021-11-22 09:20:00 16 /min Comm on [facility] blood pressure 2021-11-22 09:20:00 132 mm[Hg] [facility] blood pressure 2021-11-22 09:20:00 67 mm[Hg] Common [facility] - diastolic [facility] Systolic blood 2021-11-09 16:02:00 158 mm[Hg] Univer sity [facility] Diastolic blood 2021-11-09 16:02:00 85 mm[Hg] Unive rsity [facility] Heart rate 2021-11-09 15:46:00 69 /min Universi [facility] Body temperature 2021-11-09 15:46:00 37.06 [facility] 2021-11-09 15:46:00 18 /min [facility] Body height 2021-11-09 15:46:00 154.9 cm [facility] Body weight 2021-11-09 15:46:00 95.255 kg [facility] BMI 2021-11-09 15:46:00 39.68 kg/m2 [facility] height 2021-11-03 11:00:00 61 [in_i] [facility] weight 2021-11-03 11:00:00 205 [lb_av] [facility] temperature 2021-11-03 11:00:00 98.2 [degF] [facility] bmi 2021-11-03 11:00:00 38.73 kg/m2 [facility] oximetry 2021-11-03 11:00:00 98 % [facility] respiratory rate 2021-11-03 11:00:00 16 /min Comm on [facility] blood pressure 2021-11-03 11:00:00 138 mm[Hg] Common [facility] - systolic [facility] blood pressure 2021-11-03 11:00:00 84 mm[Hg] Common [facility] - diastolic [facility] Procedures This patient has no known procedures. Encounters Start End Encounter Admission Attending Care Care Encounter Source Date/Time Date/Time Type Type Clinicians Facility Department ID 2023-05-03 Outpatient [place], STYASMANI STLMLC [id number] Common 10:30:01 Marjorie [id number] [facility] 2023-03-05 Outpatient [place], STLMLC STLMLC [id number] Common 14:17:00 Marjorie [id number] [facility] 2022-03-27 Outpatient [place], STGILMERLC STLMLC [id number] Common 10:00:01 Marjorie [facility] 2022-03-20 Outpatient [place], STGILMERLC STLMLC [id number] Common 09:50:01 Marjorie [facility] 2021-11-22 Outpatient [place], STGILMERLC STLMLC [id number] Common 10:01:02 Marjorie [facility] 2021-11-03 Outpatient [place], STGILMERLC STLMLC [id number] Common 10:46:03 Marjorie [facility] 2021-05-29 Outpatient R YASMANY [facility] AYNAA [id number] Univers 01:02:54 [facility] 2021-05-28 [facility] [id number] Univers 21:30:00 [facility] 2021-05-28 [facility] [id number] Univers 17:06:52 [facility] 2021-05-28 [facility] [id number] Univers 13:01:23 [facility] 2022-06-28 2022-06-28 (TEL) STLMLC STLMLC [id number] Co mmon 00:00:00 00:00:00 [facility] 2022-05-26 2022-05-26 (TEL) STLMLC STLMLC [id number] Co mmon 00:00:00 00:00:00 [facility] 2022-05-10 2022-05-10 (TEL) STLMLC STLMLC [id number] Co mmon 00:00:00 00:00:00 [facility] 2022-05-01 2022-05-01 (TEL) STLMLC STLMLC [id number] Co mmon 00:00:00 00:00:00 [facility] 2022-03-29 2022-03-29 OL DIG E/M STLMLC STLMLC [id number] Common 00:00:00 00:00:00 [facility] [place] Spir it MIN [facility] 2022-03-22 2022-03-22 OFFICE STLMLC STLMLC [id number] Co mmon 00:00:00 00:00:00 VISIT EST Spir it PT LEVEL 3 [facility] 2022-03-14 2022-03-14 (TEL) STLMLC STLMLC [id number] Co mmon 00:00:00 00:00:00 [facility] 2022-02-23 2022-02-23 (TEL) STLMLC STLMLC [id number] Co mmon 00:00:00 00:00:00 [facility] 2022-01-05 2022-01-05 (TEL) STLMLC STLMLC [id number] Co mmon 00:00:00 00:00:00 [facility] 2021-12-14 2021-12-14 Outpatient MARTHA BIGGS [id number] Martha 00:00:00 00:00:00 RADHA galindo 2021-12-01 2021-12-01 (TEL) STLMLC STLMLC [id number] Co mmon 00:00:00 00:00:00 [facility] 2021-11-22 2021-11-22 OFFICE STLMLC STLMLC [id number] Co mmon 00:00:00 00:00:00 VISIT EST Spir it PT LEVEL 3 [facility] 2021-11-09 2021-11-09 Office Angelica Chavarria [facility] [id number] Univers 10:30:00 11:15:50 Visit Brad BARRETT 350.1.13.10 i ty of [place] 4.2.7.2.686 [place]ako CAMACHO [id number] Mt dical [address] 2021-11-09 2021-11-09 Outpatient ANGELICA CASTILLO [facility] [id number] Univers 10:30:00 11:15:50 ity [facility] 2021-11-09 2021-11-09 Outpatient ANGELICA CASTILLO [facility] [id number] Univers 10:30:00 10:30:00 ity [facility] 2021-11-09 2021-11-09 Orders Doctor PIERCE 1.2.840.114 [id number] Univers 00:00:00 00:00:00 Only Unassigned, MARSHALL 350.1.13.10 [facility] 4.2.7.2.686 Vini as [phone] [address] 2021-11-03 2021-11-03 [facility] [id number] Co mmon 00:00:00 00:00:00 VISIT [facility] PT LEVEL 4 - [facility] 2021-10-19 2021-10-19 Outpatient MARTHA BIGGS [id number] Martha 00:00:00 00:00:00 RADHA galindo 2021-08-27 2021-08-27 Outpatient MARTHA BIGGS [id number] Martha 00:00:00 00:00:00 RADHA galindo 2021-06-20 2021-06-20 Outpatient Julianne CHAVARRIAANGELICA [facility] [id number] Univers 10:30:00 10:30:00 ity [facility] 2021-06-17 2021-06-17 Outpatient MARTHA BIGGS [id number] Martha 00:00:00 00:00:00 RADHA galindo 2021-05-26 2021-05-26 Outpatient MARTHA PONCE [id number] Martha 00:00:00 00:00:00 DARRYL estrada 2021-05-25 2021-05-25 Outpatient MARTHA BIGGS [id number] Martha 00:00:00 00:00:00 RADHA galindo 2021-05-24 2021-05-24 Imm/Inj Nurse, David Bernal [facility] 1.2.840.114 [id number] Univers 13:59:54 14:19:54 Visit Dario Gay [facility] 350.1.13. 10 ity [facility] 4.2.7.2.686 Vini as Shade?Blea [phone] Mt tahir gomez 044 [facility] Office [facility] 2021-05-24 2021-05-24 Outpatient R [facility] [id number] Univers 14:00:00 14:00:00 ity [facility] 2021-04-22 2021-04-22 Imm/Inj Nurse, Adc Pob Immunization [facility] 1.2.840.114 [id number] Univers 08:20:44 08:21:29 Visit Dario Gay [place] 350.1.13 .10 [place] [facility] [phone] Mt tahir formerly [facility] 421 [facility] 2021-04-22 2021-04-22 [facility] [id number] Univers 08:20:00 08:20:00 DARIO [facility] 2021-02-22 2021-02-22 Outpatient LAB90 MARTHA STOKES [id number] Martha 09:50:00 09:50:00 Eleazar galindo 2021-02-22 2021-02-22 Outpatient MARTHA BIGGS [id number] Martha 09:00:00 09:00:00 RADHA galindo 2020-10-13 2020-10-13 [facility] Radiology [facility] 1.2.840.114 [id number] Univers 09:26:44 23:59:00 Encounter Bhavesh 350.1.13.10 ity [facility] 4.2.7.2.[place] [id number] [address] 2020-10-13 2020-10-13 Outpatient R RADIOLOGY [facility] [id number] Univers 00:00:00 00:00:00 ity [facility] 2020-10-03 2020-10-03 Outpatient [facility] [id number] Univers 09:50:00 09:50:00 ity [facility] 2020-09-29 2020-09-29 [facility] 1.2.866.443 [id number] Univers 10:35:00 12:53:00 Encounter Dev Barrett 350.1.13.10 [place]2.[place] [id number] [place] [id number] [place] 2020-09-28 2020-09-28 Laboratory Only, Adc Test [facility] 1.2.840. 114 [id number] Univers 11:02:44 11:17:44 Only Dev Jade 350.1.13.1 0 [place].2.[place] [id number] [facility] [address] 2020-09-28 2020-09-28 [facility] [id number] Univers 10:45:00 10:45:00 [facility] 2020-09-14 2020-09-14 [facility] [id number] Univers 10:45:00 10:45:00 [facility] 2020-09-05 2020-09-05 Outpatient [facility] [id number] Univers 10:00:00 10:00:00 ity [facility] 2020-08-04 2020-08-04 [facility] [id number] Univers 08:20:00 11:36:00 Encounter Dev [place] 350.1.13.10 [place] [id number] [address] 2020-08-04 2020-08-04 [facility] [id number] 08:20:00 11:36:00 Encounter Dev [place] 350.1.13.10 [place] 4.2.7.2.686 Surgical [phone] [place] [address] 2020-08-04 2020-08-04 Orders Doctor PIERCE 1.2.840.114 [id number] Univers 00:00:00 00:00:00 Only Unassigned, MARSHALL 350.1.13.10 [place] [facility] [place] [facility] 4.2.7.2.686 Vini as [id number] [facility] [address] 2020-08-04 2020-08-04 Orders Doctor PIERCE 1.2.840.114 [id number] 00:00:00 00:00:00 Only Unassigned, MARSHALL 350.1.13.10 [place] [facility] 4.2.7.2.686 [id number] 009 2020-08-03 2020-08-03 Outpatient R YASMANY [facility] [id number] Univers 09:30:00 09:30:00 DEV miriam [facility] 2020-08-03 2020-08-03 Laboratory Only, [facility] Test [facility] 1.2.840. 114 [id number] Univers 09:10:42 09:25:42 Only Dev Jade 350.1.13.1 0 [place] of [place] 4.2.7.2.686 [facility] [id number] [address] 2020-08-03 2020-08-03 Laboratory Only, [facility] 1.2.840.114 [id number] 09:10:42 09:25:42 Only Test Bhavesh 350.1.13.10 [place] 4.2.7.2.686 [place] [id number] 353 2020-07-26 2020-07-26 Outpatient R YASMANY [facility] [id number] Univers 17:15:00 17:15:00 DEV [facility] 2020-07-26 2020-07-26 [place] Minnie [facility] Lab Main [facility] 1.2.8 40.114 [id number] Univers 16:35:19 16:50:19 Visit Dev Jade 350.1.13.1 0 it[place] of [place] 4.2.7.2.686 [facility] [phone] Mt dical [address] 2020-07-26 2020-07-26 [place] Minnie [facility] 1.2.840.114 [id number] 16:35:19 16:50:19 Visit Lab Main Bhavesh 350.1.13.10 [place] 4.2.7.2.686 Professio [id number] [address] 2020-06-15 2020-06-15 Orders Doctor PIERCE 1.2.840.114 [id number] Univers 00:00:00 00:00:00 Only Unassigned, MARSHALL 350.1.13.10 [place] [facility] 4.2.7.2.686 Vini as [id number] [address] 2020-06-15 2020-06-15 Orders Doctor STAN 1.2.840.114 [id number] 00:00:00 00:00:00 Only Unassigned, MARSHALL 350.1.13.10 [place] [facility] 4.2.7.2.686 [id number] [facility] 2020-06-10 2020-06-10 Telephone Aura [facility] 1.2.840.114 [id number] [facility] 00:00:00 00:00:00 Cam Bhavesh 350.1.13.10 i [place]2.[place] [phone] [address] 2020-06-10 2020-06-10 Telephone Aura [facility] 1.2.840.114 [id number] 00:00:00 00:00:00 Brad [place] 350.1.13.10 [place] 4.2.7.2.686 Professio [id number] [address] 2020-06-07 2020-06-07 [facility] 1.2.130.388 [id number] [facility] 14:58:09 15:28:09 Visit Reny [place] 350.1.13.10 i [place]2.[place] [id number] [address] 2020-06-07 2020-06-07 Office [facility] 1.2.402.441 [id number] 14:58:09 15:28:09 Visit Reny [place] 350.1.13.10 [place] 4.2.7.2.686 Professio [id number] [address] 2020-06-07 2020-06-07 Outpatient R KIRIT [facility] [id number] [facility] 15:00:00 15:00:00 RENY bishop [facility] 2020-06-07 2020-06-07 Outpatient R AURA [facility] [id number] Univers 13:15:00 13:15:[address] [facility] 2020-06-07 2020-06-07 Outpatient R ANGELICA CHAVARRIA [facility] [id number] Univers 13:15:00 13:15:[address] [facility] 2020-06-07 2020-06-07 Orders Doctor PIERCE 1.2.840.114 [id number] Univers 00:00:00 00:00:00 Only Unassigned, MARSHALL 350.1.13.10 it[place] [facility] 4.2.7.2.686 Vini [id number] [facility] [address] [place] 2020-06-07 2020-06-07 Orders Doctor PIERCE 1.2.840.114 [id number] 00:00:00 00:00:00 Only Unassigned, MARSHALL 350.1.13.10 [place] [facility] 4.2.7.2.686 [id number] 009 2020-05-05 2020-05-05 Outpatient R PAULA HENRIQUEZ [facility] [id number] Univers 20:00:00 20:00:00 JULIANNE HENRIQUEZL ity of [facility] 2020-05-05 2020-05-05 [place] 1, [facility] Sleep Lab Bed [facility] 1. 2.840.114 [id number] Univers 15:04:51 17:34:51 Visit Paula Henriquez [place] 350.1.13. 10 ity of [place] 4.2.7.2.686 [facility] [id number] [facility] [address] [place] 2020-04-30 2020-04-30 Laboratory Only, Adc Test [facility] 1.2.840. 114 [id number] Univers 13:18:35 13:33:35 Only Paula Henriquez [place] 350.1.13. 10 ity of [place] 4.2.7.2.686 [facility] [phone] [facility] [address] [place] 2020-04-30 2020-04-30 Outpatient R [facility] [id number] Univers 13:30:00 13:30:[address] [facility] 2020-04-30 2020-04-30 Orders Doctor PIERCE 1.2.840.114 [id number] Univers 00:00:00 00:00:00 Only Unassigned, MARSHALL 350.1.13.10 it[place] [facility] 4.2.7.2.686 Vini as [id number] [address] 2020-04-02 2020-04-02 [place] 1, [facility] Sleep Lab Bed [place] 1. 2.840.114 [id number] Univers 06:33:35 09:03:35 Visit Paula Henriquez [place] 350.1.13. 10 ity of [place] 4.2.7.2.686 [facility] [phone] [facility] [address] [place] 2020-04-01 2020-04-01 Outpatient R JULIANNE HENRIQUEZL [facility] [id number] Univers 20:00:00 20:00:00 ATANASPRERNA PRADHANHIL ity of [facility] 2020-04-01 2020-04-01 Orders Doctor PIERCE 1.2.840.114 [id number] Univers 00:00:00 00:00:00 Only Unassigned, MARSHALL 350.1.13.10 it[place] [facility] 4.2.7.2.686 Vini as [id number] [address] 2020-03-29 2020-03-29 Laboratory Only, [facility] Test [place] 1.2.840. 114 [id number] Univers 13:12:05 13:27:05 Only Paula Henriquez [place] 350.1.13. 10 ity of [place] 4.2.7.2.686 [facility] [id number] [facility] [address] [place] 2020-03-29 2020-03-29 Outpatient R [facility] [id number] Univers 13:15:00 13:15:[address] [facility] 2020-03-24 2020-03-24 Outpatient R JULIANNE HENRIQUEZL [facility] [id number] Univers 20:00:00 20:00:00 ALECNASCAROLYNN STRAHIL ity of [facility] 2020-03-24 2020-03-24 Outpatient R [facility] [id number] Univers 09:00:00 09:00:[address] [facility] 2019-12-03 2019-12-03 Telephone Lazara [facility] 1.2.840.114 [id number] Univers 00:00:00 00:00:00 , Sarah [facility] 350.1.13.10 ity of [place] 4.2.7.2.686 Vini as Professio [phone] Mt dical nal [address] 2019-12-02 2019-12-02 Urgent Pob1, Acute Care Clinic [facility] 1. 2.840.114 [id number] Univers 13:51:15 14:11:15 Sarah Prather [facility] 350.1 .13.10 ity sb [place] 4.2.7.2.686 Vini as Professio [phone] Mt dical nal [address] 2019-12-02 2019-12-02 Outpatient R LAZARA [facility] [id number] Univers 14:00:00 14:00:00 , SARAH it y of [facility] Results Test Description Test Time Test Comments Results Result Comments Source LIPID PANEL 2022-03-22 00:00:00 Test Item Value Reference Range Interpretation Comme nts CHOLESTEROL, TOTAL (test 235 mg/dL See_Comment H [A utomated message] The code = 2093-3) system which generated this result transmit iris reference range: <200 mg/ dL. The reference range was not used to interpret th is result as normal/abnormal . HDL CHOLESTEROL (test code 86 mg/dL See_Comment N [Automated message] The = 0085-9) system which NOLA J&B nerated this result transmit iris reference range: > OR = 5 0 mg/dL. The reference range was not used to interpret th is result as normal/abnormal . TRIGLYCERIDES (test code = 89 mg/dL See_Comment N [Automated message] The 8066-8) system which [employer] nerated this result transmit iris reference range: <150 mg/ dL. The reference range was not used to interpret th is result as normal/abnormal . LDL-CHOLESTEROL (test code 130 mg/dL (calc) H = 89177-3) CHOL/HDLC RATIO (test code 2.7 (calc) See_Comment N [Automated message] The = 2230-1) system which [employer] J[employer] nerated this result transmit iris reference range: <5.0 (ca lc). The reference range was not used to interpret th is result as normal/abnormal . NON HDL CHOLESTEROL (test 149 mg/dL (calc) See_Comment H [Automated message] The code = 59016-3) system which generated this result transmit iris reference range: <130 mg/ dL (calc). The reference r sera was not used to interpr et this result as chun l/abnormal. COMPREHENSIVE METABOLIC PANEL(CMP)2021-11-07 00:00:00 Test Item Value Reference Range Interpretation Comments GLUCOSE (test code 95 mg/dL See_Comment N [Automat ed = 2345-7) message] The system which generated this result transmit iris reference range : 65-99 mg/dL. Th e reference range was not used to interpret this result as normal/abnormal . UREA NITROGEN (BUN) 12 mg/dL See_Comment N [Automa iris (test code = message] The 3094-0) system which generated this result transmit iris reference range : 7-25 mg/dL. The reference range was not used to interpret this result as normal/abnormal . CREATININE (test 0.76 mg/dL See_Comment N [Automated code = 2160-0) message] The system which generated this result transmit iris reference range : 0.50-0.99 mg/dL . The reference range was not u sed to interpret th is result as normal/abnormal . eGFR NON-AFR. 81 mL/min/1.73m2 See_Comment N [Automate d YEMENI (test code message] The = 45435-0) system which generated this result transmit iris reference range : > OR = 60 mL/min/1.73m2. The reference range was not used to interpret this result as normal/abnormal . eGFR 93 mL/min/1.73m2 See_Comment N [Automated YEMENI (test code message] The = 74929-9) system which generated this result transmit iris reference range : > OR = 60 mL/min/1.73m2. The reference range was not used to interpret this result as normal/abnormal . BUN/CREATININE NOT APPLICABLE See_Comment [Automated RATIO (test code = (calc) message] The 3097-3) system which generated this result transmit iris reference range : 6-22 (calc). Th e reference range was not used to interpret this result as normal/abnormal . SODIUM (test code = 138 mmol/L See_Comment N [Automa iris 2951-2) message] The system which generated this result transmit iris reference range : 135-146 mmol/L. The reference range was not u sed to interpret th is result as normal/abnormal . POTASSIUM (test 4.3 mmol/L See_Comment N [Automated code = 2823-3) message] The system which generated this result transmit iris reference range : 3.5-5.3 mmol/L. The reference range was not u sed to interpret th is result as normal/abnormal . CHLORIDE (test code 102 mmol/L See_Comment N [Automa iris = 2074-0) message] The system which generated this result transmit iris reference range : 98-110 mmol/L. The reference range was not used to interpret this result as normal/abnormal . CARBON DIOXIDE 28 mmol/L See_Comment N [Automated (test code = message] The 2028-03) system which generated this result transmit iris reference range : 20-32 mmol/L. T he reference range was not used to interpret this result as normal/abnormal . CALCIUM (test code 10.2 mg/dL See_Comment N [Automat ed = 90076-9) message] The system which generated this result transmit iris reference range : 8.6-10.4 mg/dL. The reference range was not u sed to interpret th is result as normal/abnormal . PROTEIN, TOTAL 6.9 g/dL See_Comment N [Automated (test code = message] The 652-2) system which generated this result transmit iris reference range : 6.1-8.1 g/dL. T he reference range was not used to interpret this result as normal/abnormal . ALBUMIN (test code 4.3 g/dL See_Comment N [Automat ed = 8061-7) message] The system which generated this result transmit iris reference range : 3.6-5.1 g/dL. T he reference range was not used to interpret this result as normal/abnormal . GLOBULIN (test code 2.6 g/dL (calc) See_Comment N [Aut omated = 27870-2) message] The system which generated this result transmit iris reference range : 1.9-3.7 g/dL (calc). The reference range was not used to interpret this result as normal/abnormal . ALBUMIN/GLOBULIN 1.7 (calc) See_Comment N [Automated RATIO (test code = message] The 8249-0) system which generated this result transmit iris reference range : 1.0-2.5 (calc). The reference range was not u sed to interpret th is result as normal/abnormal . BILIRUBIN, TOTAL 0.5 mg/dL See_Comment N [Automated (test code = message] The 1974-08) system which generated this result transmit iris reference range : 0.2-1.2 mg/dL. The reference range was not used to interpret this result as normal/abnormal . ALKALINE 64 U/L See_Comment N [Automated PHOSPHATASE (test message] T he code = 6768-6) system which generated this result transmit iris reference range : 37-153 U/L. The reference range was not used to interpret this result as normal/abnormal . AST (test code = 44 U/L See_Comment H [Automated 1920-02) message] The system which generated this result transmit iris reference range : 10-35 U/L. The reference range was not used to interpret this result as normal/abnormal . ALT (test code = 30 U/L See_Comment H [Automated 1741-12) message] The system which generated this result transmit iris reference range : 6-29 U/L. The reference range was not used to interpret this result as normal/abnormal . CBC (INCLUDES DIFF/PLT)2021-11-07 00:00:00 Test Item Value Reference Range Interpretation Comments WHITE BLOOD CELL 4.6 See_Comment N [Automated message] COUNT (test code = Thousand/uL The syste m which 66-2) generated this result transmit iris reference range : 3.8-10.8 Thousand/uL. Th e reference range was not used to interpret this result as normal/abnormal . RED BLOOD CELL COUNT 3.59 See_Comment L [Autom ated message] (test code = 789-8) Million/uL The syst em which generated this result transmit iris reference range : 3.80-5.10 Million/uL. The reference range was not used to interpret this result as normal/abnormal . HEMOGLOBIN (test 12.4 g/dL See_Comment N [Automated message] code = 718-7) The system i [facility] generated this result transmit iris reference range : 11.7-15.5 g/dL. The reference range was not used to interpret this result as normal/abnormal . HEMATOCRIT (test 36.8 % See_Comment N [Automated message] code = 4544-3) The system [facility] generated this result transmit iris reference range : 35.0-45.0 %. Th e reference range was not used to interpret this result as normal/abnormal . MCV (test code = 102.5 fL See_Comment H [Automated message] 787-2) The system [facility] generated this result transmit iris reference range : 80.0-100.0 fL. The reference range was not used to interpret this result as normal/abnormal . MCH (test code = 34.5 pg See_Comment H [Automated message] 785-6) The system [facility] generated this result transmit iris reference range : 27.0-33.0 pg. T he reference range was not used to interpret this result as normal/abnormal . MCHC (test code = 33.7 g/dL See_Comment N [Automate d message] 786-4) The system [facility] generated this result transmit iris reference range : 32.0-36.0 g/dL. The reference range was not used to interpret this result as normal/abnormal . RDW (test code = 11.8 % See_Comment N [Automated message] 788-0) The system [facility] generated this result transmit iris reference range : 11.0-15.0 %. Th e reference range was not used to interpret this result as normal/abnormal . PLATELET COUNT (test 388 See_Comment N [Autom ated message] code = 777-3) Thousand/uL The system [facility] generated this result transmit iris reference range : 140-400 Thousan d/uL. The reference r sera was not used to interpret this result as normal/abnormal . MPV (test code = 10.5 fL See_Comment N [Automated message] 776-5) The system [facility] generated this result transmit iris reference range : 7.5-12.5 fL. Th e reference range was not used to interpret this result as normal/abnormal . ABSOLUTE NEUTROPHILS 2374 cells/uL See_Comment N [Auto mated message] (test code = 751-8) The syst em which generated this result transmit iris reference range : 9998-0841 cells /uL. The reference r sera was not used to interpret this result as normal/abnormal . ABSOLUTE LYMPHOCYTES 1325 cells/uL See_Comment N [Auto mated message] (test code = 731-0) The syst em which generated this result transmit iris reference range : 850-3900 cells/ uL. The reference r sera was not used to interpret this result as normal/abnormal . ABSOLUTE MONOCYTES 511 cells/uL See_Comment N [Automat ed message] (test code = 742-7) The syst em which generated this result transmit iris reference range : 200-950 cells/u L. The reference r sera was not used to interpret this result as normal/abnormal . ABSOLUTE EOSINOPHILS 350 cells/uL See_Comment N [Autom ated message] (test code = 711-2) The syst em which generated this result transmit iris reference range : 15-500 cells/uL . The reference range was not used to interpret this result as normal/abnormal . ABSOLUTE BASOPHILS 41 cells/uL See_Comment N [Automat ed message] (test code = 704-7) The syst em which generated this result transmit iris reference range : 0-200 cells/uL. The reference range was not used to interpret this result as normal/abnormal . NEUTROPHILS (test 51.6 % N code = 770-8) LYMPHOCYTES (test 28.8 % N code = 736-9) MONOCYTES (test code 11.1 % N = 5905-5) EOSINOPHILS (test 7.6 % N code = 713-8) BASOPHILS (test code 0.9 % N = 706-2) LIPID [id number] 00:00:00 Test Item Value Reference Range Interpretation Comments CHOLESTEROL, TOTAL 191 mg/dL See_Comment N [Automat ed (test code = 2093-3) message ] The system which generated this result transmitted reference range : <200 mg/dL. The reference range was not used to interpret this result as normal/abnormal . HDL CHOLESTEROL (test 85 mg/dL See_Comment N [Auto mated code = 2085-9) message] The system which generated this result transmitted reference range : > OR = 50 mg/dL. The reference range was not used to interpret this result as normal/abnormal . TRIGLYCERIDES (test 89 mg/dL See_Comment N [Automa iris code = 2571-8) message] The system which generated this result transmitted reference range : <150 mg/dL. The reference range was not used to interpret this result as normal/abnormal . LDL-CHOLESTEROL (test 88 mg/dL N code = 82526-0) (calc) CHOL/HDLC RATIO (test 2.2 (calc) See_Comment N [Auto mated code = 9830-1) message] The system which generated this result transmitted reference range : <5.0 (calc). Th e reference range was not used to interpret this result as normal/abnormal . NON HDL CHOLESTEROL 106 mg/dL See_Comment N [Automa iris (test code = 51507-1) (calc) messag e] The system which generated this result transmitted reference range : <130 mg/dL (maulik c). The reference r sera was not used to interpret this result as normal/abnormal .
--- NOTE | 2023-05-26 13:32 | ER ---
Nurse's Notes [facility] Name: Sarina Carl Age: 67 yrs Sex: Female : 1955 Arrival Date: 05/26/2023 Time: 12:39 Bed IW7 Private MD: Diagnosis: Mid Back Pain Presentation: 05/26 13:19 Chief complaint: Severe left mid back pain and nausea x 2 days. Denies injury or hb urinary s/s. Coronavirus screen: At this time, the client does not indicate any symptoms associated with coronavirus-19. Ebola Screen: No symptoms or risks identified at this time. Initial Sepsis Screen: Does the patient meet any 2 criteria? No. Patient's initial sepsis screen is negative. Does the patient have a suspected source of infection? No. Patient's initial sepsis screen is negative. Risk Assessment: Do you want to hurt yourself or someone else? Patient reports no desire to harm self or others. Onset of symptoms was May 25, 2023. 13:19 Method Of Arrival: Ambulatory hb 13:19 Acuity: ROBEL 3 hb Historical: - Allergies: 13:21 Codeine; hb 13:21 Latex; hb - PMHx: 13:21 High Cholesterol; Thyroid problem; hb - Immunization history:: Adult Immunizations up to date. - Social history:: Smoking status: Patient denies any tobacco usage or history of. Vital Signs: 13:19 BP 180 / 92; Pulse 75; Resp 16; Temp 97.7(TE); Pulse Ox 100% on R/A; Pain 10/10; hb 13:19 Pain Scale: Adult hb ED Course: 12:49 Patient arrived in ED. im 13:04 Delmar Webber MD is Attending Physician. ec2 13:21 Triage completed. hb 13:21 Arm band placed on. hb Administered Medications: 13:38 Drug: Methocarbamol PO 750 mg PO once Route: PO; hb Outcome: 13:32 Discharge ordered by . ec2 13:38 Patient left the ED. hb Signatures: Bobbi Degroot, DARLEEN RN Genesis Fitzgerald im Delmar Webber MD MD ec2
--- NOTE | 2023-05-26 13:32 | EDPHYS ---
Physician Documentation [facility] Name: Sarina Carl Age: 67 yrs Sex: Female : 1955 Arrival Date: 05/26/2023 Time: 12:39 Bed IW7 Private MD: ED Physician Delmar Webber HPI: 05/26 13:33 This 67 yrs old Female presents to ER via Ambulatory with complaints of Back ec2 Pain. 13:33 Patient arrives today due to concern for left mid back pain. Patient reports that the ec2 pain started yesterday, is worse with positional movements, states that she is unable to sit comfortably or lay comfortably. Patient reports no falls or trauma, denies any recent injuries. Patient reports no difficulty breathing or chest pain. Patient reports no rash in the area.. Historical: - Allergies: 13:21 Codeine; hb 13:21 Latex; hb - PMHx: 13:21 High Cholesterol; Thyroid problem; hb - Immunization history:: Adult Immunizations up to date. - Social history:: Smoking status: Patient denies any tobacco usage or history of. ROS: 13:33 Constitutional: as per hpi ec2 Exam: 13:33 Constitutional: GEN: NAD Head: atraumatic Eyes: EOMI Ears: External ears are ec2 normal. CV: regular rate LUNGS: no respiratory distress ABD: non-distended SKIN: no evidence of rashes, no vesicular rashes noted. MSK: Point left lateral mid back tenderness to palpation without crepitus or deformities present NEURO: moves all extremities equally Vital Signs: 13:19 BP 180 / 92; Pulse 75; Resp 16; Temp 97.7(TE); Pulse Ox 100% on R/A; Pain 10/10; hb 13:19 Pain Scale: Adult hb MDM: 13:04 Patient medically screened. ec2 13:33 ED course: Patient arrives today due to concern for left mid back pain. Examination ec2 remarkable for well-appearing nontoxic dividual's otherwise in no acute distress. Clinically the presentation is consistent with musculoskeletal back pain given the point tenderness in this area. I considered other process such as atypical ACS, PE, pleurisy, shingles however given the HPI as well as the point tenderness, have a high index suspicion for MSK.. I will discharge home, will give Robaxin as well as prescription for Robaxin. Return precautions given. 13:35 Data reviewed: vital signs. ec2 Administered Medications: 13:38 Drug: Methocarbamol PO 750 mg PO once Route: PO; hb Disposition Summary: 05/26/23 13:32 Discharge Ordered Notes: Location: Home ec2 Condition: Stable ec2 Diagnosis - Mid Back Pain ec2 Discharge Instructions: - Discharge Summary Sheet ec2 - Acute Back Pain, Adult ec2 Forms: - Medication Reconciliation Form ec2 - Thank You Letter ec2 - Antibiotic Education ec2 - Prescription Opioid Use ec2 - Patient Portal Instructions ec2 - Leadership Thank You Letter ec2 Prescriptions: - methocarbamol 500 mg Oral tablet - take 2 tablets ORAL route 4 times per day; 30 tablet; Refills: 0, Product ec2 Selection Permitted Signatures: Bobbi Degroot, DARLEEN RN Delmar Webber MD MD ec2
[2023-05-26 13:43] VITALS: BP 180/92; TEMP 97.7; O2SAT 100
[2023-05-26] MEDS ORDERED: methocarbamoL 750 MG TAB ONE (13:46)
== END 2023-05-26 13:38 | disposition home or self-care (01) ==
LOC: ER 12:39
DX: M54.9 Dorsalgia, unspecified (principal); Z88.5 Allergy status to narcotic agent; Z91.048 Other nonmedicinal substance allergy status
CPT/HCPCS: 99282